=== PATIENT | female | born 1970 | race American Indian/Alaskan Native ===

== ENCOUNTER 2016-08-16 21:58 | Emergency (ER) | payer OTHER ==
[2016-08-17 03:32] LABS: Bilirubin,Urine NEG (Negative); Blood,Urine NEG (Negative); Ketones,Urine NEG (Negative); Leukocyte Esterase,Urine NEG (Negative); Mucus,Urine FEW /HPF; Nitrite,Urine NEG (Negative); Protein,Urine <15 mg/dL mg/dL (Negative); Urobilinogen,Urine < 2.0 mg/dL (<2.0)
[2016-08-17 03:36] LABS: WBC,Urine < 1.0 /HPF (0.0-6.0)
[2016-08-17] MEDS ORDERED: NORCO 5/325 PO ONE (03:58)
--- NOTE | 2016-08-17 04:46 | XRay Report ---
FINAL REPORT PROCEDURE: XR SPINE LUMBOSACRAL 2-3V TECHNIQUE: Lumbar spine radiographs, including AP, lateral, and lumbosacral spot views. CPT 07362 HISTORY: lower back pain COMPARISON: No prior studies are available for comparison. FINDINGS: Alignment: There is grade 1 anterior spondylolisthesis of L4 over L5.. Vertebral body heights/Disk spaces: There loss of disc height at L5-S1.. Fracture(s): None. Facets: There is bilateral facet hypertrophy at L4-5 and L5-S1.. Bone mineralization: Normal. IMPRESSION: There are no fractures.. There is grade 1 anterior spondylolisthesis of L4 over L5.. Loss of disc height at L5-S1.. There is bilateral facet hypertrophy at L4-5 and L5-S1..
--- NOTE | 2016-08-17 05:22 | Emergency Department Report ---
ED Back Pain/Injury HPI - General Chief Complaint: Back Pain/Injury Stated Complaint: PAIN IN LOWER BACK AND LEGS Time Seen by Provider: 08/17/16 02:45 Source: patient Limitations: Physical Limitation - History of Present Illness Initial Comments: 45-year-old female past medical history arthritis asthma migraines hypothyroidism sciatica herniated disks, morbid obesity weighing in at 400 pounds presents with complaint of acute on chronic lower back pain, pain radiates down left leg. Patient states this is consistent with her previous episodes of sciatica. Patient typically ambulates with a walker or cane, patient is ambulatory in the ED on my clinical exam with a walker and cane. Denies bladder or bowel incontinence denies any saddle paresthesias primarily complaining of lower back pain radiating down left leg. She has not followed up with primary care doctor or orthopedic doctor that she does not currently have insurance. Denies any direct trauma to her lower back or recent falls. Denies any fevers chills no chest pain no nausea no vomiting no abdominal pain. He eats that pain is intermittent colicky slightly worse with standing for long parents time and that she cannot lie in a comfortable position. This episode has been ongoing for 2 days. Denies any dysuria or increased urinary frequency denies any fecal incontinence. Patient is awake alert and oriented 3 , states she is assisted by her daughter at home. MD Complaint: back pain Onset/Timin -: days(s) Similar Symptoms Previously: Yes Place: home Radiation: buttocks, left leg Severity: moderate Severity scale (0 -10): 7 Quality: sharp, aching Consistency: intermittent Improves With: immobilization, medication Worsens With: movement, sitting upright, walking Context: while lifting, turning/twisting, bending Associated Symptoms: denies other symptoms - Related Data Previous Rx's Medication Instructions Recorded Last Taken Type HYDROcodone/APAP 5-325 [[place] 1 each PO Q6HR PRN #12 tablet 08/17/16 Unknown Rx 5/325] Allergies Allergy/AdvReac Type Severity Reaction Status Date / Time aspirin Allergy Anaphylaxis Verified 08/16/16 23:29 ibuprofen Allergy Anaphylaxis Verified 08/16/16 23:30 Penicillins Allergy Anaphylaxis Verified 08/16/16 23:29 shellfish derived Allergy Anaphylaxis Verified 08/16/16 23:31 Sulfa (Sulfonamide Allergy Unknown Verified 08/16/16 23:30 Antibiotics) tuberculin,PPD,multi-puncture Allergy Anaphylaxis Verified 08/16/16 23:32 ED Review of Systems ROS: Stated complaint: PAIN IN LOWER BACK AND LEGS Other details as noted in HPI ED Past Medical Hx - Past Medical History Previous Medical History?: Yes Hx Arthritis: Yes (osteoathritis) Hx Headaches / Migraines: Yes Hx Asthma: Yes (allergy induced) Additional medical history: osteoarthritis both knees, bone spurs, uses a cane, allergy induced asthma, hypothyroidism, migraines, sciatic nerve, herniated disc in spine - Social History Smoking Status: Unknown if ever smoked - Medications Home Medications: Home Medications Medication Instructions Recorded Confirmed Last Taken Type HYDROcodone/APAP 5-325 [[place] 1 each PO Q6HR PRN #12 tablet 08/17/16 Unknown Rx 5/325] ED Physical Exam - General Limitations: Physical Limitation General appearance: alert, in no apparent distress - Head Head exam: Present: atraumatic, normocephalic - Eye Eye exam: Present: normal appearance, PERRL, EOMI - ENT ENT exam: Present: mucous membranes moist - Neck Neck exam: Present: normal inspection - Respiratory Respiratory exam: Present: normal lung sounds bilaterally. Absent: respiratory distress - Cardiovascular Cardiovascular Exam: Present: regular rate, normal rhythm. Absent: systolic murmur, diastolic murmur, rubs, gallop - GI/Abdominal GI/Abdominal exam: Present: soft, normal bowel sounds, other (morbidly obese abdomen) - Extremities Exam Extremities exam: Present: normal inspection, full ROM - Back Exam Back exam: Present: normal inspection - Expanded Back Exam Expanded Back exam: Positive Straight Leg Raise: Left (30 degrees) - Neurological Exam Neurological exam: Present: alert, oriented X3, CN II-XII intact, abnormal gait (slightly antalgic gait) - Psychiatric Psychiatric exam: Present: normal affect, normal mood - Skin Skin exam: Present: warm, dry, intact, normal color. Absent: rash ED Course Vital Signs 08/16/16 23:36 Temperature 98.1 F Pulse Rate 110 H Respiratory 18 Rate Blood Pressure 163/89 O2 Sat by Pulse 100 Oximetry ED Medical Decision Making - Medical Decision Making A/P: Sciatica, acute on chronic lower back pain 1-patient has no clinical signs of cord compression denies any saddle paresthesias is able to ambulate independently without assistance other than a cane, no paralysis, pattern of pain consistent with sciatica 2-x-ray shows signs consistent with spondylolisthesis 3-I will refer patient to primary care orthopedics for appropriate follow-ups for management of chronic lower back pain 4-patient has multiple medical allergies to NSAIDs will provide short course of [place] for pain relief 5- educated patient on signs and symptoms of cord compression advised her to return to the ED if she experiences any paralysis and inability to ambulate, saddle paresthesias, bladder or bowel incontinence. pt expressed understanding of my instructions expressed understanding. Critical care attestation.: If time is entered above; I have spent that time in minutes in the direct care of this critically ill patient, excluding procedure time. ED Disposition Clinical Impression: Sciatica of left side Chronic lower back pain Qualifiers: Back pain laterality: left Sciatica presence: with sciatica Sciatica laterality : sciatica of left side Qualified Code(s): M54.42 - Lumbago with sciatica, left side; G89.29 - Other chronic pain Disposition: DISCHARGED TO HOME OR SELFCARE Is pt being admited?: No Does the pt Need Aspirin: No Condition: Stable Instructions: Sciatica (ED), Lumbar Disc Herniation (ED), Lumbar Radiculopathy (ED) Prescriptions: HYDROcodone/APAP 5-325 [[place] 5/325] 1 each PO Q6HR PRN #12 tablet PRN Reason: Pain Referrals: [facility] [Provider Group] - 3-5 Days [facility] [Outside] - 3-5 Days NANNETTE COOMBS MD [Staff Physician] - 3-5 Days BREANNE DICKEY MD [Staff Physician] - 3-5 Days [facility] [Provider Group] - 3-5 Days Time of Disposition: 05:36
[2016-08-17] MEDS ORDERED: ZOFRAN ODT PO ONE (05:47)
[2016-08-17 06:13] VITALS: BP 155/87
== END 2016-08-17 06:10 | disposition home or self-care (01) ==
LOC: EDSEX → ED 21:58
DX: M54.42 Lumbago with sciatica, left side (principal); G89.29 Other chronic pain; M19.90 Unspecified osteoarthritis, unspecified site; G43.909 Migraine, unspecified, not intractable, without status migrainosus; J45.909 Unspecified asthma, uncomplicated; E03.9 Hypothyroidism, unspecified; Z88.0 Allergy status to penicillin; Z88.2 Allergy status to sulfonamides; Z88.6 Allergy status to analgesic agent; Z91.013 Allergy to seafood
CPT/HCPCS: 72100; 81001; 81025; 99283; Q0162

== ENCOUNTER 2016-08-23 20:36 | Emergency (ER) | payer OTHER ==
[2016-08-23 22:08] LABS: Basophils % (Auto) 1.1 % (0.0-1.8); Eosinophils % (Auto) 3.4 % (0.0-4.3); Hematocrit 30.3 % (30.3-42.9); Hemoglobin 9.5 gm/dl (10.1-14.3); Mean Corpuscular HGB Conc 31 % (30-34); Platelet Count 354 K/mm3 (140-440); Red Blood Count 4.42 M/mm3 (3.65-5.03); Red Cell Distribution Width 19.5 % (13.2-15.2); White Blood Count 6.9 K/mm3 (4.5-11.0)
[2016-08-23 22:09] LABS: Mean Corpuscular Hemoglobin 22 pg (28-32); Mean Corpuscular Volume 69 fl (79-97)
[2016-08-23 22:17] LABS: Anion Gap 17 mmol/L; BUN/Creatinine Ratio 14.44; Blood Urea Nitrogen 13 mg/dL (7-17); Calcium 8.9 mg/dL (8.4-10.2); Carbon Dioxide 24 mmol/L (22-30); Chloride 100.1 mmol/L (98-107); Glucose 92 mg/dL (65-100); Potassium 3.8 mmol/L (3.6-5.0); Sodium 137 mmol/L (137-145)
[2016-08-23] MEDS ORDERED: KETALAR ONE (22:17)
[2016-08-24] MEDS ORDERED: ZOFRAN IV ONE (00:17)
[2016-08-24] MEDS ORDERED: MORPHINE IV ONE (00:17)
[2016-08-24 00:22] LABS: Bacteria,Urine 2+ /HPF (Negative); Bilirubin,Urine NEG (Negative); Blood,Urine NEG (Negative); Ketones,Urine NEG (Negative); Leukocyte Esterase,Urine NEG (Negative); Mucus,Urine FEW /HPF; Nitrite,Urine NEG (Negative); Protein,Urine <15 mg/dL mg/dL (Negative); Urobilinogen,Urine < 2.0 mg/dL (<2.0)
--- NOTE | 2016-08-24 00:24 | Emergency Department Report ---
HPI - General Chief Complaint: Neuro Symptoms/Deficit Time Seen by Provider: 08/24/16 00:05 - HPI HPI: Room 3 The patient is a 45-year-old female presenting with a chief complaint of left facial pain. The patient states this morning at approximately 11:00 she noticed numbness to her left face and the swelling behind her left ear. Patient states the not on her left ear is very tender to palpation. Patient states the pain behind her left anterior leg to a headache. Is question as to whether the patient's speech is normal secondary to the pain. Patient denies any extremity paresthesias. The patient states she was coming to the hospital however she accompanied a family member who came to the hospital so she decided to be seen. The patient currently gives her pain a score of 7/10 Location: Headache, left posterior auricular region Duration: Constant since 11:00 Quality: Pain Severity:7/10 Modifying factors: [see above] Context: [see above] Mode of transportation: [not driving] ED Past Medical Hx - Past Medical History Hx Arthritis: Yes (osteoathritis) Hx Headaches / Migraines: Yes Hx Psychiatric Treatment: Yes (depression/anxiety) Hx Asthma: Yes (allergy induced) Additional medical history: osteoarthritis both knees, bone spurs, uses a cane, allergy induced asthma, hypothyroidism, migraines, sciatic nerve, herniated disc in spine - Surgical History Additional Surgical History: plant right foot,, tubaligation - Family History Family history: no significant - Social History Smoking Status: Former Smoker (none x 2012) Substance Use Type: Alcohol - Medications Home Medications: Home Medications Medication Instructions Recorded Confirmed Last Taken Type HYDROcodone/APAP 5-325 [[place] 1 each PO Q6HR PRN #12 tablet 08/17/16 08/23/16 Unknown Rx 5/325] HYDROcodone/APAP 5-325 [[place] 1 - 2 each PO Q6HR PRN #12 tablet 08/24/16 Unknown Rx 5/325] Prednisone [predniSONE 10 mg 10 mg PO .TAPER #1 tab.ds.pk 08/24/16 Unknown Rx (6-Day Pack, 21 Tabs)] ED Review of Systems ROS: Stated complaint: LT SIDE FACIAL SWELLING Other details as noted in HPI Comment: All other systems reviewed and negative Constitutional: denies: chills, fever Eyes: denies: eye pain, eye discharge, vision change ENT: throat pain Respiratory: denies: cough, shortness of breath, wheezing Cardiovascular: denies: chest pain, palpitations Endocrine: no symptoms reported Gastrointestinal: denies: abdominal pain, nausea, diarrhea Genitourinary: denies: urgency, dysuria, discharge Musculoskeletal: denies: back pain, joint swelling, arthralgia Skin: denies: rash, lesions Neurological: headache, paresthesias Psychiatric: denies: anxiety, depression Hematological/Lymphatic: denies: easy bleeding, easy bruising Physical Exam - Physical Exam Vital Signs: Vital Signs 08/23/16 08/23/16 20:50 23:49 Temperature 98.1 F Pulse Rate 96 H 74 Respiratory 18 16 Rate Blood Pressure 161/88 Blood Pressure 123/71 [Left] O2 Sat by Pulse 100 94 Oximetry Physical Exam: GENERAL: The patient is well-developed well-nourished female lying on stretcher appearing to be in mild discomfort. [] HEENT: Normocephalic. Atraumatic. Extraocular motions are intact. Patient has moist mucous membranes. Oropharynx is clear. There is an approximately 1 cm tender movable nodule in the posterior regular region consistent with a lymph node. NECK: Supple. No meningitic signs are noted. Trachea midline CHEST/LUNGS: Clear to auscultation. There is no respiratory distress noted. HEART/CARDIOVASCULAR: Regular. There is no tachycardia. There is no gallop rub or murmur. ABDOMEN: Abdomen is soft, nontender. Patient has normal bowel sounds. There is no abdominal distention. SKIN: There is no rash. There is no edema. There is no diaphoresis. NEURO: The patient is awake, alert, and oriented. The patient is cooperative. The patient has no focal neurologic deficits. The patient has normal speech. Renal nerves II through XII grossly intact, normal sensation in V1, V2, V3 bilaterally. Normal sensation in bilateral upper extremities. There is no pronator drift. There is forehead sparing MUSCULOSKELETAL: There is no evidence of acute injury. ED Course Vital Signs 08/23/16 08/23/16 20:50 23:49 Temperature 98.1 F Pulse Rate 96 H 74 Respiratory 18 16 Rate Blood Pressure 161/88 Blood Pressure 123/71 [Left] O2 Sat by Pulse 100 94 Oximetry ED Medical Decision Making - Lab Data Result diagrams: 08/23/16 21:46 08/23/16 21:46 Laboratory Tests 08/23/16 08/23/16 08/23/16 21:46 21:46 23:31 WBC 6.9 RBC 4.42 Hgb 9.5 L Hct 30.3 MCV 69 L MCH 22 L MCHC 31 RDW 19.5 H Plt Count 354 Lymph % (Auto) 47.3 H Schleicher % (Auto) 5.8 Eos % (Auto) 3.4 Baso % (Auto) 1.1 Lymph # 3.3 Schleicher # 0.4 Eos # 0.2 Baso # 0.1 Seg Neutrophils % 42.4 Seg Neutrophils # 2.9 Sodium 137 Potassium 3.8 Chloride 100.1 Carbon Dioxide 24 Anion Gap 17 BUN 13 Creatinine 0.9 Estimated GFR > 60 BUN/Creatinine Ratio 14.44 Glucose 92 POC Glucose 87 Calcium 8.9 Urine Bilirubin Urine RBC (Auto) U Epithel Cells (Auto) 08/23/16 23:48 WBC RBC Hgb Hct MCV MCH MCHC RDW Plt Count Lymph % (Auto) Schleicher % (Auto) Eos % (Auto) Baso % (Auto) Lymph # Schleicher # Eos # Baso # Seg Neutrophils % Seg Neutrophils # Sodium Potassium Chloride Carbon Dioxide Anion Gap BUN Creatinine Estimated GFR BUN/Creatinine Ratio Glucose POC Glucose Calcium Urine Bilirubin Neg Urine RBC (Auto) 4.0 U Epithel Cells (Auto) 20.0 H - Radiology Data Radiology results: report reviewed (CT neck, CT head), image reviewed (CT head, CT neck) CT head (read by radiologist)-negative CT scan of the head. No acute intracranial process CT neck (read by radiologist)-there is a 9 x 7 x 8 mm soft tissue density behind the left ear which may correspond clinical abnormality. This could be a nonenlarged lymph node versus other mass. - Differential Diagnosis TMJ syndrome, mastoiditis, lymphadenopathy, ICH Critical care attestation.: If time is entered above; I have spent that time in minutes in the direct care of this critically ill patient, excluding procedure time. ED Disposition Clinical Impression: Mass of left side of neck Disposition: DISCHARGED TO HOME OR SELFCARE Is pt being admited?: No Does the pt Need Aspirin: No Condition: Stable Instructions: Lymphadenopathy (ED), Superficial Mass Needle Biopsy (ED) Additional Instructions: Return to the emergency department immediately should you develop worsening symptoms, fever, inability to tolerate food or liquid or any other concerns. Prescriptions: HYDROcodone/APAP 5-325 [[place] 5/325] 1 - 2 each PO Q6HR PRN #12 tablet PRN Reason: Pain Prednisone [predniSONE 10 mg (6-Day Pack, 21 Tabs)] 10 mg PO .TAPER #1 tab.ds.pk Referrals: PRIMARY CARE, [Primary Care Provider] - 3-5 Days [facility] [Outside] - 3-5 Days MI LYN MD [Staff Physician] - 3-5 Days (Dr. Lyn is an ear nose and throat doctor (hand bulldozer). Please follow up with her for further evaluation of your neck mass) Time of Disposition: 04:39
[2016-08-24] MEDS ORDERED: BENADRYL IV ONE (00:26)
[2016-08-24] MEDS ORDERED: NACL ONE (02:37)
--- NOTE | 2016-08-24 03:22 | Cat Scan Report ---
FINAL REPORT EXAM: CT HEAD/BRAIN WO CON HISTORY: headache, difficulty speaking TECHNIQUE: Standard unenhanced CT of the head at 5.0 millimeter axial increments. PRIORS: None. FINDINGS: The ventricular system is normal in size and configuration. There is no evidence for parenchymal volume loss. There is no evidence for mass lesion, mass effect, midline shift, acute intracranial hemorrhage, or acute ischemia/ infarction. No evidence for acute skull fracture is seen. No abnormality in the overlying scalp soft tissues is seen. Visualized paranasal sinuses are clear. IMPRESSION: Negative CT of the head. No acute intracranial process noted.
--- NOTE | 2016-08-24 04:30 | Cat Scan Report ---
FINAL REPORT EXAM: CT NECK W CON HISTORY: left posterior auricular swelling and pain TECHNIQUE: CT of the neck performed. 100 cc Omnipaque 350 IV was administered. Axial images and coronal and sagittal reformatted images were obtained. PRIORS: None. FINDINGS: Next soft tissue planes are preserved. No abnormal fluid collections are seen. There is a soft tissue density behind the left ear which measures 9 x 7 x 8 mm. This is nonspecific. It may be a small mass or may may be just a nonenlarged lymph node. There are sub cm nonspecific soft tissue densities in the parotid glands, most likely representing lymph nodes. Parotid glands are otherwise unremarkable. Submandibular glands have a normal appearance. Thyroid gland is incompletely visualized but appears nonenlarged. Visualized sinuses are clear. IMPRESSION: There is a 9 x 7 x 8 mm soft tissue density behind the left ear which may correspond to the clinical abnormality. This could be a nonenlarged lymph node versus other mass.
[2016-08-24 05:04] VITALS: BP 101/66
== END 2016-08-24 05:04 | disposition home or self-care (01) ==
LOC: ED 20:36
DX: R22.1 Localized swelling, mass and lump, neck (principal); M19.90 Unspecified osteoarthritis, unspecified site; G43.909 Migraine, unspecified, not intractable, without status migrainosus; F41.9 Anxiety disorder, unspecified; F32.9 Major depressive disorder, single episode, unspecified; J45.909 Unspecified asthma, uncomplicated; E03.9 Hypothyroidism, unspecified; Z87.891 Personal history of nicotine dependence
CPT/HCPCS: 36415; 70450; 70491; 80048; 81001; 81025; 82962; 85025; 96374; 96375; 99284; J1200; J2270; J2405; Q9967

== ENCOUNTER 2016-09-01 09:41 | Emergency (ER) | payer SELFPAY ==
[2016-09-01 10:26] VITALS: BP 149/86
[2016-09-01] MEDS ORDERED: NORCO 5/325 PO ONE (13:38)
--- NOTE | 2016-09-01 13:38 | Emergency Department Report ---
HPI - General Chief Complaint: Neck Pain/Injury Time Seen by Provider: 09/01/16 12:54 - HPI HPI: This is a 45-year-old female presents to ED complaining of left-sided neck pain has been going on for about a month. Patient states she was seen last week with given some prednisone and pain medication and follow-up with primary care physician. Patient states she does not have insurance and was not able to follow up. She states that took the prednisone was immediately better after she was done taking the medication the pain started yesterday. She denies fevers/chills/nausea/vomiting/abdominal pain/chest pains or shortness of breath/headache/blurred vision/trauma or injury. ED Past Medical Hx - Past Medical History Previous Medical History?: Yes Hx Arthritis: Yes (osteoathritis) Hx Headaches / Migraines: Yes Hx Psychiatric Treatment: Yes (depression/anxiety) Hx Asthma: Yes (allergy induced) Additional medical history: osteoarthritis both knees, bone spurs, uses a cane, allergy induced asthma, hypothyroidism, migraines, sciatic nerve, herniated disc in spine - Surgical History Past Surgical History?: Yes Additional Surgical History: plant right foot,, tubaligation - Social History Smoking Status: Former Smoker Substance Use Type: Alcohol, Prescribed - Medications Home Medications: Home Medications Medication Instructions Recorded Confirmed Last Taken Type HYDROcodone/APAP 5-325 [[place] 1 - 2 each PO Q6HR PRN #12 tablet 08/24/16 Unknown Rx 5/325] Prednisone [predniSONE 10 mg 10 mg PO .TAPER #1 tab.ds.pk 08/24/16 Unknown Rx (6-Day Pack, 21 Tabs)] Azithromycin [Zithromax] 250 mg PO DAILY #6 tablet 09/01/16 Unknown Rx HYDROcodone/APAP 5-325 [[place] 1 each PO Q6HR PRN #12 tablet 09/01/16 Unknown Rx 5-325 mg TAB] ED Review of Systems ROS: Stated complaint: PAIN IN NECK/MIGRANE/LUMP IN NECK/SWOLLEN Other details as noted in HPI Constitutional: denies: chills, fever Eyes: denies: eye pain, eye discharge, vision change ENT: denies: ear pain, throat pain Respiratory: denies: cough, shortness of breath, wheezing Cardiovascular: denies: chest pain, palpitations Endocrine: no symptoms reported Gastrointestinal: denies: abdominal pain, nausea, diarrhea Genitourinary: denies: urgency, dysuria, discharge Musculoskeletal: denies: back pain, joint swelling, arthralgia Skin: denies: rash, lesions, pruritus Neurological: denies: headache, weakness, numbness, paresthesias, confusion, abnormal gait Psychiatric: denies: anxiety, depression Hematological/Lymphatic: denies: easy bleeding, easy bruising Physical Exam - Physical Exam Vital Signs: Vital Signs 09/01/16 10:23 Temperature 98.3 F Pulse Rate 94 H Respiratory 20 Rate Blood Pressure 149/86 O2 Sat by Pulse 100 Oximetry Physical Exam: GENERAL: Alert and oriented x3, appears to be in mild apparent distress, Normal Gait, atraumatic HEAD: Head is normocephalic and a-traumatic. EYES: Extra ocular muscles are intact. Pupils are equal, round, and reactive to light and accommodation. EARS: symetrical, atraumatic, non tender, ear canal clear and moderate cerumen, tympanic membrance non inflamed. gross auditory nml bilaterally. 1 cm tender movable nodule in the posterior auricular region consistent with a post auricular enlarged lymph node. NOSE: Nose symetrical, Nontender,Nares appeared normal. MOUTH:Mouth is well hydrated and without lesions. Tonsils nonerythematous or swollen, Uvula midline, Tongue not elevated. Mucous membranes are moist. Posterior pharynx clear, no exudate or lesions. Patent airways. NECK: Supple. Non edematous, No carotid bruits. No lymphadenopathy or thyromegaly. No C-spine tenderness LUNGS: Symetrical with respiration, No wheezing, no rales or crackles, CTAB. HEART: S1, S2 present, regular rate and rhythm without murmur, no rubs, no gallops. EXTREMITIES/MUSCULOSKELETAL: No cyanosis, clubbing, rash, lesions or edema. Full ROM bilaterally. NEUROLOGIC: No focal Neural Deficit, Cranial nerves II through XII are grossly intact. No loss of sensation, No facial droop, SKIN: Warm and dry, No lesions, No ulceration or induration present. ED Course Vital Signs 09/01/16 10:23 Temperature 98.3 F Pulse Rate 94 H Respiratory 20 Rate Blood Pressure 149/86 O2 Sat by Pulse 100 Oximetry ED Medical Decision Making - Medical Decision Making 45-year-old female presents with postauricular lymphadenopathy/mass ED course: Patient received 2 tablets of [place]. discussed the patient need to follow up as she was told during her last visit. Patient received the CT scan during her last visit that shows possible lymph node enlargement or mass. Patient states she feels much better after receiving 2 [place] tablets Patient's symptoms are unchanged and is not worsening since his last visit Therefore no CT scan is needed at this visit Vital signs are normal patient is in no acute or respiratory distress. Discussed the patient follow-up is needed. - Differential Diagnosis 1. Lymphadenopathy 2. Left neck muscle strain 3. Mastoiditis 4. TMJ Dis Critical care attestation.: If time is entered above; I have spent that time in minutes in the direct care of this critically ill patient, excluding procedure time. ED Disposition Clinical Impression: Neck pain on left side, Lymphadenopathy Disposition: DISCHARGED TO HOME OR SELFCARE Is pt being admited?: No Does the pt Need Aspirin: No Condition: Stable Instructions: Lymphadenopathy (ED), Adenitis (ED) Additional Instructions: Follow-up with primary care physician as referred. Take medication as prescribed. If any worsening symptoms return to nearest ED. It is very important for you to follow up with the primary care as referred. Applied some heat 3 times a day to the left neck affected area. Prescriptions: Azithromycin [Zithromax] 250 mg PO DAILY #6 tablet HYDROcodone/APAP 5-325 [[place] 5-325 mg TAB] 1 each PO Q6HR PRN #12 tablet PRN Reason: Pain Referrals: PRIMARY CARE, [Primary Care Provider] - 3-5 Days [facility] [place] [Outside] - 3-5 Days [facility] [Outside] - 3-5 Days [facility] [Outside] - 3-5 Days Forms: Work/School Release Form(ED) Time of Disposition: 14:00
== END 2016-09-01 14:15 | disposition home or self-care (01) ==
LOC: ED 09:41
DX: R59.0 Localized enlarged lymph nodes (principal); M54.2 Cervicalgia; M19.90 Unspecified osteoarthritis, unspecified site; G43.909 Migraine, unspecified, not intractable, without status migrainosus; F32.9 Major depressive disorder, single episode, unspecified; F41.9 Anxiety disorder, unspecified; J45.909 Unspecified asthma, uncomplicated; E03.9 Hypothyroidism, unspecified; Z87.891 Personal history of nicotine dependence; Z98.51 Tubal ligation status
CPT/HCPCS: 99282

== ENCOUNTER 2016-12-23 13:05 | Emergency (ER) | payer SELFPAY ==
[2016-12-23] MEDS ORDERED: TORADOL IM ONE (20:02)
[2016-12-23 20:14] VITALS: BP 138/89
--- NOTE | 2016-12-24 01:36 | Emergency Department Report ---
Entered by ANDRZEJ GIVENS, acting as scribe for ANIKA VALENZUELA NP. ED Back Pain/Injury HPI - General Chief Complaint: Extremity Injury, Lower Stated Complaint: BILAT LEG PAIN/SWOLLEN Time Seen by Provider: 12/23/16 19:23 Source: patient Limitations: No Limitations - History of Present Illness Initial Comments: This is a 46 y/o female, nontoxic, well nourished in appearance, no acute signs of distress with a PMHx of osteoarthritis, asthma, migraines, herniated disc of lumbar, psychiatric treatment, and hypothyroidism presents with an acute episode of chronic low back pain. Rates pain a 9/10 in severity, which she describes as aching/burning in quality. Aggravated with movement, and alleviated with immobilization and medication. Reports associated radiation to bilateral legs, but she denies any recent injuries, falls, heavy lifting, dysuria, fever, stiff neck, bladder or bowel instability, chills, chest pain, SOB, GARNICA or dizziness, numbness, and tingling. Notes she was seen in this ED multiple time for similar complaints, which the last time she was diagnosed with sciatica, but she denies following-up with a PCP. Patient stated has very similar symptoms as previous. Notes she received lumbar back X-rays that showed her L4 is overlapping her L5. Patient states she is currently here for pain management. Denies PMHx of diabetes mellitus. NKDA. HINTON Complaint: back pain -: Gradual, month(s) Similar Symptoms Previously: Yes Place: home Radiation: left leg, right leg Severity: severe Severity scale (0 -10): 9 Quality: burning, aching Consistency: constant Improves With: immobilization, medication Worsens With: movement Context: other (Hx of chronic back pain and sciatica) Associated Symptoms: denies other symptoms. denies: confusion, weakness, chest pain, numbness, difficulty walking, cough, difficulty urinating, diaphoresis, incontinence, fever/chills, constipation, headaches, abdominal pain, loss of appetite, malaise, nausea/vomiting, rash, seizure, shortness of breath, syncope - Related Data Previous Rx's Medication Instructions Recorded Last Taken Type HYDROcodone/APAP 5-325 [[place] 1 - 2 each PO Q6HR PRN #12 tablet 08/24/16 Unknown Rx 5/325] Prednisone [predniSONE 10 mg 10 mg PO .TAPER #1 tab.ds.pk 08/24/16 Unknown Rx (6-Day Pack, 21 Tabs)] Azithromycin [Zithromax] 250 mg PO DAILY #6 tablet 09/01/16 Unknown Rx HYDROcodone/APAP 5-325 [[place] 1 each PO Q6HR PRN #12 tablet 09/01/16 Unknown Rx 5-325 mg TAB] predniSONE [Deltasone] 20 mg PO BID #10 tab 12/23/16 Unknown Rx traMADol [Ultram] 50 mg PO Q4HR PRN #15 tablet 12/23/16 Unknown Rx Allergies Allergy/AdvReac Type Severity Reaction Status Date / Time aspirin Allergy Anaphylaxis Verified 08/16/16 23:29 ibuprofen Allergy Anaphylaxis Verified 08/16/16 23:30 Penicillins Allergy Anaphylaxis Verified 08/16/16 23:29 shellfish derived Allergy Anaphylaxis Verified 08/16/16 23:31 Sulfa (Sulfonamide Allergy Unknown Verified 08/16/16 23:30 Antibiotics) tuberculin,PPD,multi-puncture Allergy Anaphylaxis Verified 08/16/16 23:32 ED Review of Systems Comment: All other systems reviewed and negative Constitutional: denies: chills, fever Eyes: denies: eye pain, eye discharge, vision change ENT: denies: ear pain, throat pain Respiratory: denies: cough, orthopnea, shortness of breath, SOB with exertion, SOB at rest, stridor, wheezing Cardiovascular: denies: chest pain, palpitations, dyspnea on exertion, orthopnea , edema, syncope, paroxysmal nocturnal dyspnea Endocrine: no symptoms reported Gastrointestinal: denies: abdominal pain, nausea, vomiting, diarrhea Genitourinary: denies: urgency, dysuria, discharge Musculoskeletal: back pain (low back), joint swelling (bilateral feet). denies : arthralgia, myalgia Skin: denies: rash, lesions Neurological: denies: headache, weakness, numbness, paresthesias Psychiatric: denies: anxiety, depression Hematological/Lymphatic: denies: easy bleeding, easy bruising ED Past Medical Hx - Past Medical History Previous Medical History?: Yes Hx Arthritis: Yes (osteoathritis) Hx Headaches / Migraines: Yes Hx Psychiatric Treatment: Yes (depression/anxiety) Hx Asthma: Yes (allergy induced) Additional medical history: osteoarthritis both knees, bone spurs, uses a cane, allergy induced asthma, hypothyroidism, migraines, sciatic nerve, herniated disc in spine - Surgical History Past Surgical History?: Yes Additional Surgical History: plant right foot,, tubaligation - Family History Family history: no significant - Social History Smoking Status: Never Smoker Substance Use Type: Alcohol - Medications Home Medications: Home Medications Medication Instructions Recorded Confirmed Last Taken Type HYDROcodone/APAP 5-325 [[place] 1 - 2 each PO Q6HR PRN #12 tablet 08/24/16 Unknown Rx 5/325] Prednisone [predniSONE 10 mg 10 mg PO .TAPER #1 tab.ds.pk 08/24/16 Unknown Rx (6-Day Pack, 21 Tabs)] Azithromycin [Zithromax] 250 mg PO DAILY #6 tablet 09/01/16 Unknown Rx HYDROcodone/APAP 5-325 [[place] 1 each PO Q6HR PRN #12 tablet 09/01/16 Unknown Rx 5-325 mg TAB] predniSONE [Deltasone] 20 mg PO BID #10 tab 12/23/16 Unknown Rx traMADol [Ultram] 50 mg PO Q4HR PRN #15 tablet 12/23/16 Unknown Rx ED Physical Exam - General Limitations: No Limitations General appearance: alert, in no apparent distress - Head Head exam: Present: atraumatic, normocephalic - Eye Eye exam: Present: normal appearance, PERRL, EOMI. Absent: scleral icterus, conjunctival injection, nystagmus, periorbital swelling, periorbital tenderness Pupils: Present: normal accommodation - ENT ENT exam: Present: normal exam, normal orophraynx, mucous membranes moist, TM's normal bilaterally, normal external ear exam - Neck Neck exam: Present: normal inspection, full ROM. Absent: tenderness, meningismus, lymphadenopathy, thyromegaly - Respiratory Respiratory exam: Present: normal lung sounds bilaterally. Absent: respiratory distress, wheezes, rales, rhonchi, stridor, chest wall tenderness, accessory muscle use, decreased breath sounds - Cardiovascular Cardiovascular Exam: Present: regular rate, normal rhythm, normal heart sounds. Absent: bradycardia, tachycardia, irregular rhythm, systolic murmur, diastolic murmur, rubs, gallop - GI/Abdominal GI/Abdominal exam: Present: soft, normal bowel sounds. Absent: distended, tenderness, guarding, rebound, rigid, diminished bowel sounds - Rectal Rectal exam: Present: deferred - Extremities Exam Extremities exam: Present: normal inspection, full ROM, normal capillary refill. Absent: tenderness, pedal edema, joint swelling, calf tenderness - Expanded Lower Extremity Exam Left Hip exam: Present: normal inspection (bilaterally), full ROM, external rotation , internal rotation, pelvic stability. Absent: tenderness, swelling, abrasion, laceration, ecchymosis, deformity, crepidus, dislocation, erythema, shortening Upper Leg exam: Present: normal inspection (bilaterally), full ROM. Absent: tenderness, swelling, abrasion, laceration, ecchymosis, deformity, crepidus, dislocation, erythema Knee exam: Present: normal inspection (bilaterally), full ROM, full knee extension. Absent: tenderness, swelling, abrasion, laceration, ecchymosis, deformity, crepidus, dislocation, erythema, effusion, pain w/ pronation/ supination, posterior draw sign, pain/laxity with valgus, pain/laxity with varus Lower Leg exam: Present: normal inspection (bilaterally), full ROM. Absent: tenderness, swelling, abrasion, laceration, ecchymosis, deformity, crepidus, dislocation, erythema, palpable cord, Cesario's sign Ankle exam: Present: normal inspection (bilaterally), full ROM. Absent: tenderness, swelling, abrasion, laceration, ecchymosis, deformity, crepidus, dislocation, erythema, anterior draw sign Foot/Toe exam: Present: normal inspection (bilaterally), full ROM. Absent: tenderness, swelling, abrasion, laceration, ecchymosis, deformity, crepidus, dislocation, erythema, amputation, puncture wound, foreign body, calcaneal tenderness, tenderness at base of 5th metatarsal, nail avulsion, subungual hematoma Neuro vascular tendon exam: Present: no vascular compromise. Absent: pulse deficit, abnormal cap refill, motor deficit, sensory deficit, tendon deficit, extremity cold to touch, pallor, abnormal 2-point discrimination, decreased fine /light touch, foot drop, peroneal nerve deficit, significant pain with passive ROM of distal joint Gait: Positive: observed and normal - Back Exam Back exam: Present: full ROM, tenderness (lumbar paraspinal), paraspinal tenderness (lumbar). Absent: normal inspection, CVA tenderness (R), CVA tenderness (L), muscle spasm, vertebral tenderness, rash noted - Neurological Exam Neurological exam: Present: alert, oriented X3, CN II-XII intact, normal gait, reflexes normal. Absent: motor sensory deficit - Psychiatric Psychiatric exam: Present: normal affect, normal mood - Skin Skin exam: Present: warm, dry, intact. Absent: rash ED Course Vital Signs 12/23/16 13:16 Temperature 98.4 F Pulse Rate 106 H Respiratory 18 Rate Blood Pressure 149/86 O2 Sat by Pulse 98 Oximetry - Reevaluation(s) Reevaluation #1: 12/23/16 20:04 Patient is speaking in full sentences with no signs of distress noted. ED Medical Decision Making - Medical Decision Making 46-year-old female that presents with chronic low back pain with sciatica. Patient was seen on 08/16/2016 with a x-ray indicating they were anterior spondylosis of L4 over L5, loss of disc height at L5-S1, bilateral facet hypertrophy at L4-L5 and L5-S1. Patient stated she did not have a follow-up with orthopedic doctor or primary care doctor. Patient denies any bladder or bowel stability. Patient is stable. Patient is myself. Patient received Toradol 60 mg IM the ED for pain. Patient be discharged with Ultram and Flexeril. Patient stated she received Flexeril during acute episode of low back pain that helped her significantly. Patient denies numbness recently. Patient referred to a orthopedic and primary care doctor. At time time of discharge, the patient does not seem toxic or ill in appearance. No acute signs of distress noted. Patient agrees to discharge treatment plan of care. No further questions noted by the patient. ED Disposition Clinical Impression: Lumbar radiculopathy Low back pain Qualifiers: Chronicity: unspecified Back pain laterality: bilateral Sciatica presence: with sciatica Sciatica laterality: sciatica laterality unspecified Qualified Code(s): M54.40 - Lumbago with sciatica, unspecified side Disposition: - TO HOME OR SELFCARE Is pt being admited?: No Does the pt Need Aspirin: No Condition: Stable Instructions: Low Back Strain (ED), Sciatica (ED), Lumbar Radiculopathy (ED), Tramadol (By mouth), Cyclobenzaprine (By mouth) Additional Instructions: Follow-up with a primary care doctor/orthopedic doctor in 3-5 days or if symptoms worsen and continue return to emergency room as soon as possible. Take Ultram and Flexeril s needed for pain. Do not operate any machinery while taking Ultram or Flexeril due to sedation/drowsiness. Prescriptions: predniSONE [Deltasone] 20 mg PO BID #10 tab traMADol [Ultram] 50 mg PO Q4HR PRN #15 tablet PRN Reason: Pain Referrals: PRIMARY CARE,MD [Primary Care Provider] - 3-5 Days YANNA BRANDT MD [Staff Physician] - 3-5 Days BREANNE DICKEY MD [Staff Physician] - 3-5 Days [facility] [Outside] - 3-5 Days [facility] [Outside] - 3-5 Days This documentation as recorded by the CO[facility] delcid JASMINE,accurately reflects the service I personally performed and the decisions made by ,ANIKA VALENZUELA, PRODUCTION ANALYST.
== END 2016-12-23 20:40 | disposition home or self-care (01) ==
LOC: ED 13:05
DX: M54.16 Radiculopathy, lumbar region (principal); M19.90 Unspecified osteoarthritis, unspecified site; G43.909 Migraine, unspecified, not intractable, without status migrainosus; F32.9 Major depressive disorder, single episode, unspecified; F41.9 Anxiety disorder, unspecified; J45.909 Unspecified asthma, uncomplicated; E03.9 Hypothyroidism, unspecified; Z98.51 Tubal ligation status; Z88.6 Allergy status to analgesic agent; Z88.0 Allergy status to penicillin; Z88.2 Allergy status to sulfonamides; Z91.013 Allergy to seafood
CPT/HCPCS: 96372; 99282; J1885

== ENCOUNTER 2017-03-21 02:23 | Inpatient (IN) | payer MEDICAID ==
[2017-03-21 04:29] LABS: Basophils % (Auto) 0.8 % (0.0-1.8); Eosinophils % (Auto) 2.9 % (0.0-4.3); Hematocrit 40.3 % (30.3-42.9); Hemoglobin 13.3 gm/dl (10.1-14.3); Mean Corpuscular HGB Conc 33 % (30-34); Mean Corpuscular Hemoglobin 28 pg (28-32); Mean Corpuscular Volume 86 fl (79-97); Platelet Count 259 K/mm3 (140-440); Red Blood Count 4.71 M/mm3 (3.65-5.03); Red Cell Distribution Width 15.2 % (13.2-15.2); White Blood Count 3.6 K/mm3 (4.5-11.0)
[2017-03-21 04:45] LABS: Anion Gap 17 mmol/L; BUN/Creatinine Ratio 10; Blood Urea Nitrogen 7 mg/dL (7-17); Calcium 8.8 mg/dL (8.4-10.2); Carbon Dioxide 28 mmol/L (22-30); Chloride 98.5 mmol/L (98-107); Glucose 123 mg/dL (65-100); Potassium 4.2 mmol/L (3.6-5.0); Sodium 139 mmol/L (137-145)
[2017-03-21] MEDS ORDERED: ULTRAM PO ONE (08:47)
--- NOTE | 2017-03-21 09:06 | XRay Report ---
Single view chest: History: Shortness of breath. Findings: Normal cardiomediastinal silhouette. Trachea is midline. No consolidation, pneumothorax or pleural effusion. Impression: No acute cardiopulmonary findings.
[2017-03-21] MEDS ORDERED: ATROVENT IH ONE (12:16)
[2017-03-21] MEDS ORDERED: PROVENTIL IH ONE (12:16)
--- NOTE | 2017-03-21 12:20 | Emergency Department Report ---
HPI - General Chief Complaint: Chest Pain Time Seen by Provider: 03/21/17 12:12 - HPI HPI: This is a 46-year-old female presents to the emergency department with complaint of some wheezing, shortness of breath and some chest tightness to the left side that began last night. She denies any vomiting, diaphoresis, fever. She also has been having some chest congestion and a mixed dry and productive cough for the past 4-5 days. She is not taking anything for her symptoms by the presentation. She has a past medical history of osteoarthritis, depression , obesity, asthma, hypothyroidism. Her primary care doctor is Dr. Erich Montalvo at [facility] in [place]. No recent travel or sick contacts at home. Secondarily she complains of some type of lesion to the right lower lateral leg that she believes was caused by something that bit her. At one point she was able to squeeze it and discharge and pus from the site but is still slightly tender and red. She denies any tobacco or illicit drug use or abuse. ED Past Medical Hx - Past Medical History Previous Medical History?: Yes Hx Arthritis: Yes (osteoathritis) Hx Headaches / Migraines: Yes Hx Psychiatric Treatment: Yes (depression/anxiety) Hx Asthma: Yes (allergy induced) Additional medical history: osteoarthritis both knees, bone spurs, uses a cane, allergy induced asthma, hypothyroidism, migraines, sciatic nerve, herniated disc in spine - Surgical History Additional Surgical History: plant right foot,, tubaligation - Social History Smoking Status: Former Smoker - Medications Home Medications: Home Medications Medication Instructions Recorded Confirmed Last Taken Type HYDROcodone/APAP 5-325 [[place] 1 - 2 each PO Q6HR PRN #12 tablet 08/24/16 Unknown Rx 5/325] Prednisone [predniSONE 10 mg 10 mg PO .TAPER #1 tab.ds.pk 08/24/16 Unknown Rx (6-Day Pack, 21 Tabs)] Azithromycin [Zithromax] 250 mg PO DAILY #6 tablet 09/01/16 Unknown Rx HYDROcodone/APAP 5-325 [[place] 1 each PO Q6HR PRN #12 tablet 09/01/16 Unknown Rx 5-325 mg TAB] predniSONE [Deltasone] 20 mg PO BID #10 tab 12/23/16 Unknown Rx traMADol [Ultram] 50 mg PO Q4HR PRN #15 tablet 12/23/16 Unknown Rx ED Review of Systems ROS: Stated complaint: CP; SOB Other details as noted in HPI Comment: All other systems reviewed and negative Constitutional: denies: chills, fever Eyes: denies: eye pain, eye discharge, vision change ENT: denies: ear pain, throat pain Respiratory: shortness of breath, wheezing Cardiovascular: chest pain. denies: palpitations Gastrointestinal: nausea. denies: abdominal pain, vomiting Genitourinary: denies: urgency, dysuria, discharge Musculoskeletal: denies: back pain, joint swelling, arthralgia Skin: lesions. denies: pruritus Neurological: denies: headache, weakness, paresthesias Physical Exam - Physical Exam Vital Signs: Vital Signs 03/21/17 03/21/17 02:35 03:20 Temperature 98.1 F 98.1 F Pulse Rate 108 H 106 H Respiratory 18 18 Rate Blood Pressure 124/79 124/79 O2 Sat by Pulse 96 96 Oximetry Physical Exam: GENERAL: The patient is well-developed well-nourished. HENT: Normocephalic. Atraumatic. Patient has moist mucous membranes. EYES: Extraocular motions are intact. Pupils equal reactive to light bilaterally. NECK: Supple. Trachea is midline. CHEST/LUNGS: Moderate wheezing throughout the chest. There is some tachypnea but no cysts or masses. There is no respiratory distress noted. HEART/CARDIOVASCULAR: Regular. There is mild tachycardia. There is no gallop rub or murmur. ABDOMEN: Abdomen is soft, nontender. Patient has normal bowel sounds. There is no abdominal distention. Morbidly obese habitus. SKIN: Skin is warm and dry. NEURO: The patient is awake, alert, and oriented. The patient is cooperative. The patient has no focal neurologic deficits. The patient has normal speech. MUSCULOSKELETAL: There is no tenderness or deformity. There is no limitation range of motion. There is no evidence of acute injury. ED Course Vital Signs 03/21/17 03/21/17 02:35 03:20 Temperature 98.1 F 98.1 F Pulse Rate 108 H 106 H Respiratory 18 18 Rate Blood Pressure 124/79 124/79 O2 Sat by Pulse 96 96 Oximetry ED Medical Decision Making - Lab Data Result diagrams: 03/21/17 04:16 03/21/17 04:16 - EKG Data -: EKG Interpreted by Me EKG shows normal: sinus rhythm, axis (RAD), intervals, QRS complexes (RBBB), ST- T waves Rate: tachycardia (108 bpm) - EKG Data When compared to previous EKG there are: previous EKG unavailable Interpretation: other (Sinus tach, RBBB) - Radiology Data Radiology results: report reviewed, image reviewed interpreted by me: Chest x-ray does not show any acute process. There are no pleural effusions, obvious pneumonia and there is no pneumothorax. FINAL REPORT EXAM: NM LUNG SCAN PERF/VENT HISTORY: SOB, elevated dimer TECHNIQUE: Ventilation-perfusion scan The perfusion study was following intravenous administration 5 millicuries technetium 99 M MAA Ventilation study was performed with 15 millicuries of Xe 133 gas PRIORS: None. FINDINGS: On perfusion study there is a homogeneous distribution of the radiotracer bilaterally without evidence for perfusion defect. On ventilation study there is no evidence for air trapping. There is rapid washout of the radiotracer. IMPRESSION: Negative. No scintigraphic evidence for acute pulmonary embolus Transcribed By: SOFIA Dictated By: JOSE IBARRA MD Electronically Authenticated By: JOSE IBARRA MD Signed Date/Time: 03/21/17 1121 - Medical Decision Making The patient received steroids, breathing treatments and there is some improvement of her wheezing and bronchospasm but not enough. She still has tachycardia, tachypnea and audible wheezing. VQ is low probability for pulmonary embolism. She still has some chest discomfort as well but there has been negative troponins 3 and an EKG that does not show any ST elevation SC. She will be admitted to the hospital for further evaluation and treatment and has been accepted for admission by the hospitalist, Dr Basurto. - Differential Diagnosis Asthma, PE, COPD, SC, CHF Critical Care Time: No Critical care attestation.: If time is entered above; I have spent that time in minutes in the direct care of this critically ill patient, excluding procedure time. ED Disposition Clinical Impression: Bronchospasm Asthma exacerbation Qualifiers: Asthma severity: unspecified severity Asthma persistence: unspecified Qualified Code(s): J45.901 - Unspecified asthma with (acute) exacerbation Chest pain Qualifiers: Chest pain type: unspecified Qualified Code(s): R07.9 - Chest pain, unspecified Disposition: OP ADMIT IP TO THIS HOSP Is pt being admited?: Yes Condition: Stable Instructions: Chest Pain (ED) Referrals: PRIMARY CARE, [Primary Care Provider] - 3-5 Days Time of Disposition: 16:40
[2017-03-21] MEDS ORDERED: NACL ONE (12:59)
--- NOTE | 2017-03-21 15:24 | Nuclear Medicine Report ---
FINAL REPORT EXAM: NM LUNG SCAN PERF/VENT HISTORY: SOB, elevated dimer TECHNIQUE: Ventilation-perfusion scan The perfusion study was following intravenous administration 5 millicuries technetium 99 M MAA Ventilation study was performed with 15 millicuries of Xe 133 gas PRIORS: None. FINDINGS: On perfusion study there is a homogeneous distribution of the radiotracer bilaterally without evidence for perfusion defect. On ventilation study there is no evidence for air trapping. There is rapid washout of the radiotracer. IMPRESSION: Negative. No scintigraphic evidence for acute pulmonary embolus
--- NOTE | 2017-03-21 17:54 | History and Physical Report ---
History of Present Illness Chief complaint: sob, wheezing History of present illness: 46 year old woman with history of morbid obesity and Mild intermittent allergic asthma. She states that she only has two asthma attacks every year. She gets a short course of treatment and she is fine most of the year. She presents with two to three days of progressive shortness of breath, Dyspnea on exertion, And wheezing. she reports that since receiving oxygen and breathing treatments in the emergency room she feels much better. Past History Past Medical History: other (asthma, morbid obesity, hypothyroidism, OA, ) Past Surgical History: , Other (tubal ligation, Right foot surgery with metal plates in it. ) Social history: no significant social history Family history: other (asthma on both sides) Medications and Allergies Allergies Allergy/AdvReac Type Severity Reaction Status Date / Time aspirin Allergy Anaphylaxis Verified 08/16/16 23:29 ibuprofen Allergy Anaphylaxis Verified 08/16/16 23:30 Penicillins Allergy Anaphylaxis Verified 08/16/16 23:29 shellfish derived Allergy Anaphylaxis Verified 08/16/16 23:31 Sulfa (Sulfonamide Allergy Unknown Verified 08/16/16 23:30 Antibiotics) tuberculin,PPD,multi-puncture Allergy Anaphylaxis Verified 08/16/16 23:32 Home Medications Medication Instructions Recorded Confirmed Last Taken Type HYDROcodone/APAP 5-325 [[place] 1 - 2 each PO Q6HR PRN #12 tablet 08/24/16 Unknown Rx 5/325] Prednisone [predniSONE 10 mg 10 mg PO .TAPER #1 tab.ds.pk 08/24/16 Unknown Rx (6-Day Pack, 21 Tabs)] Azithromycin [Zithromax] 250 mg PO DAILY #6 tablet 09/01/16 Unknown Rx HYDROcodone/APAP 5-325 [[place] 1 each PO Q6HR PRN #12 tablet 09/01/16 Unknown Rx 5-325 mg TAB] predniSONE [Deltasone] 20 mg PO BID #10 tab 12/23/16 Unknown Rx traMADol [Ultram] 50 mg PO Q4HR PRN #15 tablet 12/23/16 Unknown Rx Review of Systems Constitutional: weakness Respiratory: cough, shortness of breath, dyspnea on exertion, wheezing Exam - Constitutional Vitals: Temp Pulse Resp BP Pulse Ox 98.1 F 106 H 20 124/79 96 03/21/17 03:20 03/21/17 13:30 03/21/17 13:30 03/21/17 03:20 03/21/17 03:20 General appearance: Present: no acute distress, well-nourished, obese - EENT Eyes: Present: PERRL ENT: hearing intact, clear oral mucosa - Neck Neck: Present: supple, normal ROM - Respiratory Respiratory effort: normal Respiratory: bilateral: diminished, wheezing - Cardiovascular Heart Sounds: Present: S1 & S2. Absent: rub, click - Extremities Extremities: pulses symmetrical, No edema Peripheral Pulses: within normal limits - Abdominal General gastrointestinal: Present: soft, non-tender, non-distended, normal bowel sounds Female genitourinary: Present: normal - Integumentary Integumentary: Present: clear, warm, dry - Musculoskeletal Musculoskeletal: gait normal, strength equal bilaterally - Psychiatric Psychiatric: appropriate mood/affect, intact judgment & insight - Neurologic Neurologic: CNII-XII intact, moves all extremities Results - Labs CBC & Chem 7: 03/21/17 04:16 03/22/17 05:35 Labs: Laboratory Last Values WBC 3.6 K/mm3 (4.5-11.0) L 03/21/17 04:16 RBC 4.71 M/mm3 (3.65-5.03) 03/21/17 04:16 Hgb 13.3 gm/dl (10.1-14.3) 03/21/17 04:16 Hct 40.3 % (30.3-42.9) 03/21/17 04:16 MCV 86 fl (79-97) 03/21/17 04:16 MCH 28 pg (28-32) 03/21/17 04:16 MCHC 33 % (30-34) 03/21/17 04:16 RDW 15.2 % (13.2-15.2) 03/21/17 04:16 Plt Count 259 K/mm3 (140-440) 03/21/17 04:16 Lymph % (Auto) 37.9 % (13.4-35.0) H 03/21/17 04:16 [place] % (Auto) 11.3 % (0.0-7.3) H 03/21/17 04:16 Eos % (Auto) 2.9 % (0.0-4.3) 03/21/17 04:16 Baso % (Auto) 0.8 % (0.0-1.8) 03/21/17 04:16 Lymph # 1.4 K/mm3 (1.2-5.4) 03/21/17 04:16 [place] # 0.4 K/mm3 (0.0-0.8) 03/21/17 04:16 Eos # 0.1 K/mm3 (0.0-0.4) 03/21/17 04:16 Baso # 0.0 K/mm3 (0.0-0.1) 03/21/17 04:16 Seg Neutrophils % 47.1 % (40.0-70.0) 03/21/17 04:16 Seg Neutrophils # 1.7 K/mm3 (1.8-7.7) L 03/21/17 04:16 D-Dimer 567.07 ng/mlDDU (0-234) H 03/21/17 12:23 Sodium 139 mmol/L (137-145) 03/21/17 04:16 Potassium 4.2 mmol/L (3.6-5.0) 03/21/17 04:16 Chloride 98.5 mmol/L (98-107) 03/21/17 04:16 Carbon Dioxide 28 mmol/L (22-30) 03/21/17 04:16 Anion Gap 17 mmol/L 03/21/17 04:16 BUN 7 mg/dL (7-17) 03/21/17 04:16 Creatinine 0.7 mg/dL (0.7-1.2) 03/21/17 04:16 Estimated GFR > 60 ml/min 03/21/17 04:16 BUN/Creatinine Ratio 10 % 03/21/17 04:16 Glucose 123 mg/dL (65-100) H 03/21/17 04:16 Calcium 8.8 mg/dL (8.4-10.2) 03/21/17 04:16 Troponin T < 0.010 ng/mL (0.00-0.029) 03/21/17 09:21 HCG, Qual Negative (Negative) 03/21/17 04:16 - Imaging and Cardiology Chest x-ray: image reviewed (no acute findings) Imaging and Cardiology: VQ scan, no mismatch Assessment and Plan Assessment and plan: 46F with asthma exacerbation Asthma exacerbation steroids, nebulizers, and antibiotics. acute respiratory failure continue oxygen supplementation Morbid obesity has been counseled about lifestyle modification period after acute issues are resolved, happy so we can refer her to a weight loss program.
[2017-03-21] MEDS ORDERED: TYLENOL PO PRN (17:55)
[2017-03-21] MEDS ORDERED: MILK OF MAGNESIA PO PRN (17:55)
[2017-03-21] MEDS ORDERED: DULCOLAX PR PRN (17:55)
[2017-03-21] MEDS ORDERED: ZOFRAN IV PRN (17:55)
[2017-03-21] MEDS ORDERED: ULTRAM PO PRN ×2 (17:58→22:56)
[2017-03-21] MEDS ORDERED: ZITHROMAX 500 MG in NACL 0.9% 250ML 250 ML IV SCH (20:00)
[2017-03-21] MEDS: DUONEB *Not for PRN Use IH SCH (21:01)
[2017-03-21] MEDS: PULMICORT IH SCH (21:01)
[2017-03-21] MEDS ORDERED: LaMICtal PO SCH (23:30)
[2017-03-22] MEDS: ULTRAM PO SCH ×3 (00:07→21:42)
[2017-03-22] MEDS: LaMICtal PO SCH ×4 (00:08→21:43)
[2017-03-22] MEDS: VOLTAREN DR PO SCH ×3 (00:09→21:41)
[2017-03-22] MEDS: DUONEB *Not for PRN Use IH SCH ×4 (02:46→19:38)
[2017-03-22] MEDS: NORCO 5/325 PO PRN ×2 (06:03→17:17)
[2017-03-22] MEDS: SYNTHROID 150 MCG, SYNTHROID 25 MCG PO SCH (06:04)
[2017-03-22 07:09] LABS: Anion Gap 20 mmol/L; BUN/Creatinine Ratio 21; Blood Urea Nitrogen 15 mg/dL (7-17); Calcium 8.9 mg/dL (8.4-10.2); Carbon Dioxide 23 mmol/L (22-30); Chloride 100.5 mmol/L (98-107); Glucose 217 mg/dL (65-100); Potassium 4.1 mmol/L (3.6-5.0); Sodium 139 mmol/L (137-145)
--- NOTE | 2017-03-22 08:12 | Progress Note ---
<ULYSSES EARL - Last Filed: 03/22/17 14:08> Assessment and Plan Assessment and plan: Patient is a 46 year old woman with history of morbid obesity and Mild intermittent allergic asthma. She states that she only has two asthma attacks every year. She presents with two to three days of progressive shortness of breath, Dyspnea on exertion and wheezing. Acute respiratory failure with hypoxia Patient oxygen saturation improved with 2LNC; currently SPO2 98%. No acute respiratory distress noted. Aggressive Nebulizers/Inhalers ABG when necessary Oxygen supplement Supportive care Asthma exacerbation Continue on Duoneb every 6 hours Wean IV steroid Solumedrol Continue empiric IV azithromycin Oxygen as necessary Hypertensive urgency Continue home antihypertensive medications Closely monitor blood pressure Elevated d-dimer CTA showed that in pulmonary embolus with moderate burden of thrombus in bilateral lower lobe arteries. VL Theo. LE doppler no evidence of DVT Started on heparin drip and we will transition to eliis Hematology consulted for outpatient follow up Pain control Supportive care Morbid obesity Has been counseled about lifestyle modification period after acute issues are resolved, happy so we can refer her to a weight loss program. DVT prophylaxis heparin drip History Interval history: Patient complains shortness of breath and dyspnea on exertion. She denies chest pain. Labs and nursing notes reviewed. Hospitalist Physical - Constitutional Vitals: Temp Pulse Resp BP Pulse Ox 98.1 F 116 H 20 134/70 93 03/22/17 03:17 03/22/17 03:17 03/22/17 06:03 03/22/17 03:17 03/22/17 03:17 General appearance: Present: no acute distress, well-nourished, obese - EENT Eyes: Present: PERRL ENT: hearing intact - Neck Neck: Present: supple - Respiratory Respiratory effort: normal Respiratory: bilateral: diminished - Cardiovascular Rhythm: regular Heart Sounds: Present: S1 & S2 - Abdominal General gastrointestinal: soft, non-tender - Integumentary Integumentary: Present: clear, warm, dry - Psychiatric Psychiatric: appropriate mood/affect - Neurologic Neurologic: moves all extremities - Allied Health Allied health notes reviewed: nursing Results - Labs CBC & Chem 7: 03/21/17 04:16 03/22/17 05:35 Labs: Laboratory Last Values WBC 3.6 K/mm3 (4.5-11.0) L 03/21/17 04:16 RBC 4.71 M/mm3 (3.65-5.03) 03/21/17 04:16 Hgb 13.3 gm/dl (10.1-14.3) 03/21/17 04:16 Hct 40.3 % (30.3-42.9) 03/21/17 04:16 MCV 86 fl (79-97) 03/21/17 04:16 MCH 28 pg (28-32) 03/21/17 04:16 MCHC 33 % (30-34) 03/21/17 04:16 RDW 15.2 % (13.2-15.2) 03/21/17 04:16 Plt Count 259 K/mm3 (140-440) 03/21/17 04:16 Lymph % (Auto) 37.9 % (13.4-35.0) H 03/21/17 04:16 [place] % (Auto) 11.3 % (0.0-7.3) H 03/21/17 04:16 Eos % (Auto) 2.9 % (0.0-4.3) 03/21/17 04:16 Baso % (Auto) 0.8 % (0.0-1.8) 03/21/17 04:16 Lymph # 1.4 K/mm3 (1.2-5.4) 03/21/17 04:16 [place] # 0.4 K/mm3 (0.0-0.8) 03/21/17 04:16 Eos # 0.1 K/mm3 (0.0-0.4) 03/21/17 04:16 Baso # 0.0 K/mm3 (0.0-0.1) 03/21/17 04:16 Seg Neutrophils % 47.1 % (40.0-70.0) 03/21/17 04:16 Seg Neutrophils # 1.7 K/mm3 (1.8-7.7) L 03/21/17 04:16 D-Dimer 567.07 ng/mlDDU (0-234) H 03/21/17 12:23 Sodium 139 mmol/L (137-145) 03/22/17 05:35 Potassium 4.1 mmol/L (3.6-5.0) 03/22/17 05:35 Chloride 100.5 mmol/L (98-107) 03/22/17 05:35 Carbon Dioxide 23 mmol/L (22-30) 03/22/17 05:35 Anion Gap 20 mmol/L 03/22/17 05:35 BUN 15 mg/dL (7-17) 03/22/17 05:35 Creatinine 0.7 mg/dL (0.7-1.2) 03/22/17 05:35 Estimated GFR > 60 ml/min 03/22/17 05:35 BUN/Creatinine Ratio 21 % 03/22/17 05:35 Glucose 217 mg/dL (65-100) H 03/22/17 05:35 Calcium 8.9 mg/dL (8.4-10.2) 03/22/17 05:35 Troponin T < 0.010 ng/mL (0.00-0.029) 03/21/17 09:21 HCG, Qual Negative (Negative) 03/21/17 04:16 <LUPE ANTHONY M - Last Filed: 03/23/17 07:56> Assessment and Plan Assessment and plan: I saw and evaluated the patient. I agree with the findings and the plan of care as documented in the Nurse Practitioner's progress note. Hospitalist Physical - Constitutional Vitals: Temp Pulse Resp BP Pulse Ox 98.6 F 105 H 18 123/82 96 03/23/17 07:52 03/23/17 07:52 03/23/17 07:52 03/23/17 07:52 03/23/17 07:52 Results - Labs CBC & Chem 7: 03/22/17 13:26 03/22/17 05:35 Labs: Laboratory Last Values WBC 3.6 K/mm3 (4.5-11.0) L 03/21/17 04:16 RBC 4.71 M/mm3 (3.65-5.03) 03/21/17 04:16 Hgb 13.7 gm/dl (10.1-14.3) 03/22/17 13:26 Hct 41.8 % (30.3-42.9) 03/22/17 13:26 MCV 86 fl (79-97) 03/21/17 04:16 MCH 28 pg (28-32) 03/21/17 04:16 MCHC 33 % (30-34) 03/21/17 04:16 RDW 15.2 % (13.2-15.2) 03/21/17 04:16 Plt Count 303 K/mm3 (140-440) 03/22/17 13:26 Lymph % (Auto) 37.9 % (13.4-35.0) H 03/21/17 04:16 [place] % (Auto) 11.3 % (0.0-7.3) H 03/21/17 04:16 Eos % (Auto) 2.9 % (0.0-4.3) 03/21/17 04:16 Baso % (Auto) 0.8 % (0.0-1.8) 03/21/17 04:16 Lymph # 1.4 K/mm3 (1.2-5.4) 03/21/17 04:16 [place] # 0.4 K/mm3 (0.0-0.8) 03/21/17 04:16 Eos # 0.1 K/mm3 (0.0-0.4) 03/21/17 04:16 Baso # 0.0 K/mm3 (0.0-0.1) 03/21/17 04:16 Seg Neutrophils % 47.1 % (40.0-70.0) 03/21/17 04:16 Seg Neutrophils # 1.7 K/mm3 (1.8-7.7) L 03/21/17 04:16 PT 12.9 Sec. (12.2-14.9) 03/22/17 13:26 INR 0.93 (0.87-1.13) 03/22/17 13:26 APTT 29.2 Sec. (24.2-36.6) 03/22/17 13:26 D-Dimer 567.07 ng/mlDDU (0-234) H 03/21/17 12:23 Heparin Anti-Xa Level 0.33 U.I./ml (0.3-0.7) 03/22/17 21:40 Sodium 139 mmol/L (137-145) 03/22/17 05:35 Potassium 4.1 mmol/L (3.6-5.0) 03/22/17 05:35 Chloride 100.5 mmol/L (98-107) 03/22/17 05:35 Carbon Dioxide 23 mmol/L (22-30) 03/22/17 05:35 Anion Gap 20 mmol/L 03/22/17 05:35 BUN 15 mg/dL (7-17) 03/22/17 05:35 Creatinine 0.7 mg/dL (0.7-1.2) 03/22/17 05:35 Estimated GFR > 60 ml/min 03/22/17 05:35 BUN/Creatinine Ratio 21 % 03/22/17 05:35 Glucose 217 mg/dL (65-100) H 03/22/17 05:35 Calcium 8.9 mg/dL (8.4-10.2) 03/22/17 05:35 Troponin T < 0.010 ng/mL (0.00-0.029) 03/21/17 09:21 HCG, Qual Negative (Negative) 03/21/17 04:16
[2017-03-22] MEDS: PULMICORT IH SCH ×2 (09:16→19:38)
[2017-03-22] MEDS ORDERED: LOVENOX SUB-Q SCH (10:00)
[2017-03-22] MEDS ORDERED: LaMICtal PO SCH (10:00)
[2017-03-22] MEDS ORDERED: ROBITUSSIN DM PO PRN (10:01)
[2017-03-22] MEDS ORDERED: GUAIFENESIN DM SYRUP PO PRN ×2 (10:01→11:23)
[2017-03-22] MEDS ORDERED: NACL ONE (12:08)
--- NOTE | 2017-03-22 12:54 | Cat Scan Report ---
CT CHEST WITH CONTRAST: 03/22/17 CLINICAL: Chest pain.Shortness of breath. TECHNIQUE: PE protocol with volumetric acquisition and 1.25 mm scan reconstructions after the uneventful intravenous injection of 100 cc Omnipaque 350. Consent was obtained prior to the administration of contrast. FINDINGS: Less than optimal opacification of the pulmonary arteries which is likely related to a large body habitus and suboptimal timing of the bolus. Despite suboptimal opacification, there is suspicious deficiency in opacification of bilateral lower lobe arteries when compared to the upper lobe arteries and the main pulmonary artery. The aorta is more dense than the main pulmonary artery. Normal heart and aorta. Normal lungs and mediastinum. Normal thyroid, trachea and esophagus. The upper abdomen is unremarkable. The bones and soft tissues are normal. IMPRESSION: Positive study for pulmonary embolus with a moderate burden of thrombus in bilateral lower lobe arteries. Verbal report was given to the nurse Tristan Cordero at 12:50 on 03/22/17. KENNETH MILLAN
[2017-03-22 14:09] LABS: Hematocrit 41.8 % (30.3-42.9); Hemoglobin 13.7 gm/dl (10.1-14.3)
[2017-03-22 14:22] LABS: INR 0.93 (0.87-1.13)
[2017-03-22 14:23] LABS: Partial Thromboplastin Time 29.2 Sec. (24.2-36.6)
[2017-03-22] MEDS: HEPARIN/ 0.45% NACL-25,000 UNIT/500 ML 25,000 UNIT/500 ML BAG IV SCH ×2 (15:31→22:49)
[2017-03-22] MEDS: ZITHROMAX PO SCH (21:42)
[2017-03-23] MEDS: NORCO 5/325 PO PRN ×2 (01:52→19:00)
[2017-03-23] MEDS: DUONEB *Not for PRN Use IH SCH ×4 (02:13→19:30)
[2017-03-23] MEDS: SYNTHROID 150 MCG, SYNTHROID 25 MCG PO SCH (06:04)
--- NOTE | 2017-03-23 08:05 | Vascular Lab Report ---
LOWER EXTREMITY VENOUS DUPLEX: REASON FOR EXAM: Pain and swelling of the lower extremities. Elevated d-dimer. COMMENTS ON THE RIGHT: All veins visualized are freely compressible without evidence of internal echogenicity. Flow is spontaneous and phasic throughout. COMMENTS ON THE LEFT: All veins visualized are freely compressible without evidence of internal echogenicity. Flow is spontaneous and phasic throughout. IMPRESSION: No evidence of acute or chronic deep venous thrombosis in either lower extremity.
--- NOTE | 2017-03-23 08:11 | Progress Note ---
<ULYSSES EARL - Last Filed: 03/24/17 18:38> Assessment and Plan Assessment and plan: Patient is a 46 year old woman with history of morbid obesity and Mild intermittent allergic asthma. She presents with two to three days of progressive shortness of breath, Dyspnea on exertion and wheezing. Acute respiratory failure with hypoxia Patient oxygen saturation improved with 2LNC; currently SPO2 98%. No acute respiratory distress noted. Aggressive Nebulizers/Inhalers ABG when necessary Oxygen supplement Supportive care Disposition patient might go home tomorrow if she continue to improve Asthma exacerbation Continue on Duoneb every 6 hours Wean IV steroid Solumedrol Continue empiric IV azithromycin Oxygen as necessary Hypertensive urgency Continue home antihypertensive medications Closely monitor blood pressure Pulmonary embolus CTA showed that in pulmonary embolus with moderate burden of thrombus in bilateral lower lobe arteries. VL Theo. LE doppler no evidence of DVT Continue on heparin drip and we will transition to eliquis Hematology consulted for outpatient follow up Pain control Supportive care Morbid obesity Counseled about reducing weight. DVT prophylaxis heparin drip History Interval history: Patient denies shortness of breath or chest pain Hospitalist Physical - Constitutional Vitals: Temp Pulse Resp BP Pulse Ox 98.6 F 105 H 18 123/82 96 03/23/17 07:52 03/23/17 07:52 03/23/17 07:52 03/23/17 07:52 03/23/17 07:52 General appearance: Present: no acute distress, well-nourished, obese - EENT Eyes: Present: PERRL ENT: hearing intact - Neck Neck: Present: supple - Respiratory Respiratory effort: normal Respiratory: bilateral: CTA - Cardiovascular Rhythm: regular Heart Sounds: Present: S1 & S2 - Extremities Extremities: no ischemia - Abdominal General gastrointestinal: soft, non-tender - Integumentary Integumentary: Present: clear, warm, dry - Psychiatric Psychiatric: appropriate mood/affect - Neurologic Neurologic: moves all extremities - Allied Health Allied health notes reviewed: nursing Results - Labs CBC & Chem 7: 03/24/17 07:03 03/22/17 05:35 Labs: Laboratory Last Values WBC 3.6 K/mm3 (4.5-11.0) L 03/21/17 04:16 RBC 4.71 M/mm3 (3.65-5.03) 03/21/17 04:16 Hgb 13.7 gm/dl (10.1-14.3) 03/22/17 13: Hct 41.8 % (30.3-42.9) 03/22/17 13:26 MCV 86 fl (79-97) 03/21/17 04:16 MCH 28 pg (28-32) 03/21/17 04:16 MCHC 33 % (30-34) 03/21/17 04:16 RDW 15.2 % (13.2-15.2) 03/21/17 04:16 Plt Count 303 K/mm3 (140-440) 03/22/17 13:26 Lymph % (Auto) 37.9 % (13.4-35.0) H 03/21/17 04:16 [place] % (Auto) 11.3 % (0.0-7.3) H 03/21/17 04:16 Eos % (Auto) 2.9 % (0.0-4.3) 03/21/17 04:16 Baso % (Auto) 0.8 % (0.0-1.8) 03/21/17 04:16 Lymph # 1.4 K/mm3 (1.2-5.4) 03/21/17 04:16 [place] # 0.4 K/mm3 (0.0-0.8) 03/21/17 04:16 Eos # 0.1 K/mm3 (0.0-0.4) 03/21/17 04:16 Baso # 0.0 K/mm3 (0.0-0.1) 03/21/17 04:16 Seg Neutrophils % 47.1 % (40.0-70.0) 03/21/17 04:16 Seg Neutrophils # 1.7 K/mm3 (1.8-7.7) L 03/21/17 04:16 PT 12.9 Sec. (12.2-14.9) 03/22/17 13:26 INR 0.93 (0.87-1.13) 03/22/17 13:26 APTT 29.2 Sec. (24.2-36.6) 03/22/17 13:26 D-Dimer 567.07 ng/mlDDU (0-234) H 03/21/17 12:23 Heparin Anti-Xa Level 0.33 U.I./ml (0.3-0.7) 03/22/17 21:40 Sodium 139 mmol/L (137-145) 03/22/17 05:35 Potassium 4.1 mmol/L (3.6-5.0) 03/22/17 05:35 Chloride 100.5 mmol/L (98-107) 03/22/17 05:35 Carbon Dioxide 23 mmol/L (22-30) 03/22/17 05:35 Anion Gap 20 mmol/L 03/22/17 05:35 BUN 15 mg/dL (7-17) 03/22/17 05:35 Creatinine 0.7 mg/dL (0.7-1.2) 03/22/17 05:35 Estimated GFR > 60 ml/min 03/22/17 05:35 BUN/Creatinine Ratio 21 % 03/22/17 05:35 Glucose 217 mg/dL (65-100) H 03/22/17 05:35 Calcium 8.9 mg/dL (8.4-10.2) 03/22/17 05:35 Troponin T < 0.010 ng/mL (0.00-0.029) 03/21/17 09:21 HCG, Qual Negative (Negative) 03/21/17 04:16 <LUPE ANTHONY M - Last Filed: 03/25/17 16:20> Assessment and Plan Assessment and plan: I saw and evaluated the patient. I agree with the findings and the plan of care as documented in the Nurse Practitioner's progress note. Hospitalist Physical - Constitutional Vitals: Temp Pulse Resp BP Pulse Ox 98.3 F 98 H 20 167/85 97 03/25/17 08:13 03/25/17 08:45 03/25/17 08:45 03/25/17 08:13 03/25/17 10:00 Results - Labs CBC & Chem 7: 03/24/17 07:03 03/22/17 05:35 Labs: Laboratory Last Values WBC 3.6 K/mm3 (4.5-11.0) L 03/21/17 04:16 RBC 4.71 M/mm3 (3.65-5.03) 03/21/17 04:16 Hgb 12.8 gm/dl (10.1-14.3) 03/24/17 07:03 Hct 38.9 % (30.3-42.9) 03/24/17 07:03 MCV 86 fl (79-97) 03/21/17 04:16 MCH 28 pg (28-32) 03/21/17 04:16 MCHC 33 % (30-34) 03/21/17 04:16 RDW 15.2 % (13.2-15.2) 03/21/17 04:16 Plt Count 338 K/mm3 (140-440) 03/24/17 07:03 Lymph % (Auto) 37.9 % (13.4-35.0) H 03/21/17 04:16 [place] % (Auto) 11.3 % (0.0-7.3) H 03/21/17 04:16 Eos % (Auto) 2.9 % (0.0-4.3) 03/21/17 04:16 Baso % (Auto) 0.8 % (0.0-1.8) 03/21/17 04:16 Lymph # 1.4 K/mm3 (1.2-5.4) 03/21/17 04:16 [place] # 0.4 K/mm3 (0.0-0.8) 03/21/17 04:16 Eos # 0.1 K/mm3 (0.0-0.4) 03/21/17 04:16 Baso # 0.0 K/mm3 (0.0-0.1) 03/21/17 04:16 Seg Neutrophils % 47.1 % (40.0-70.0) 03/21/17 04:16 Seg Neutrophils # 1.7 K/mm3 (1.8-7.7) L 03/21/17 04:16 PT 12.9 Sec. (12.2-14.9) 03/22/17 13:26 INR 0.93 (0.87-1.13) 03/22/17 13:26 APTT 29.2 Sec. (24.2-36.6) 03/22/17 13:26 D-Dimer 567.07 ng/mlDDU (0-234) H 03/21/17 12:23 Heparin Anti-Xa Level 0.29 U.I./ml (0.3-0.7) L 03/24/17 07:04 Sodium 139 mmol/L (137-145) 03/22/17 05:35 Potassium 4.1 mmol/L (3.6-5.0) 03/22/17 05:35 Chloride 100.5 mmol/L (98-107) 03/22/17 05:35 Carbon Dioxide 23 mmol/L (22-30) 03/22/17 05:35 Anion Gap 20 mmol/L 03/22/17 05:35 BUN 15 mg/dL (7-17) 03/22/17 05:35 Creatinine 0.7 mg/dL (0.7-1.2) 03/22/17 05:35 Estimated GFR > 60 ml/min 03/22/17 05:35 BUN/Creatinine Ratio 21 % 03/22/17 05:35 Glucose 217 mg/dL (65-100) H 03/22/17 05:35 Calcium 8.9 mg/dL (8.4-10.2) 03/22/17 05:35 Troponin T < 0.010 ng/mL (0.00-0.029) 03/21/17 09:21 HCG, Qual Negative (Negative) 03/21/17 04:16
[2017-03-23] MEDS: PULMICORT IH SCH ×2 (08:52→19:30)
[2017-03-23] MEDS: HEPARIN/ 0.45% NACL-25,000 UNIT/500 ML 25,000 UNIT/500 ML BAG IV SCH (09:25)
[2017-03-23] MEDS: ULTRAM PO SCH ×2 (09:26→22:08)
[2017-03-23] MEDS: VOLTAREN DR PO SCH ×2 (09:31→22:10)
--- NOTE | 2017-03-23 10:58 | Discharge Summary ---
Providers - Providers Date of Admission: 03/21/17 17:55 Date of discharge: 03/23/17 Attending physician: LUPE ANTHONY MD Primary care physician: CLINTON [facility] Hospitalization Condition: Stable Disposition: DC-30 STILL A PATIENT Exam - Constitutional Vitals: Temp Pulse Resp BP Pulse Ox 98.6 F 105 H 18 123/82 96 03/23/17 07:52 03/23/17 07:52 03/23/17 07:52 03/23/17 07:52 03/23/17 07:52 Plan Follow up with: JOE CALIX MD [Referring] - 3-5 Days
[2017-03-23] MEDS ORDERED: PROVENTIL IH PRN (14:04)
[2017-03-23] MEDS: ZITHROMAX PO SCH (22:09)
[2017-03-23] MEDS: LaMICtal PO SCH (22:09)
[2017-03-24] MEDS: DUONEB *Not for PRN Use IH SCH ×4 (01:20→21:06)
[2017-03-24] MEDS: HEPARIN/ 0.45% NACL-25,000 UNIT/500 ML 25,000 UNIT/500 ML BAG IV SCH (04:05)
[2017-03-24] MEDS: SYNTHROID PO SCH ×2 (05:32→05:33)
[2017-03-24 07:43] LABS: Hematocrit 38.9 % (30.3-42.9); Hemoglobin 12.8 gm/dl (10.1-14.3)
[2017-03-24] MEDS: PULMICORT IH SCH ×2 (07:54→21:06)
--- NOTE | 2017-03-24 09:41 | Hem/Onc Consultation ---
History of Present Illness - Reason for Consult Consult date: 03/24/17 - History of Present Illness dictated We will order hyper-audible workup. Patient switched to eliquis from heparin Past History Past Medical History: other (asthma, morbid obesity, hypothyroidism, OA, ) Past Surgical History: , Other (tubal ligation, Right foot surgery with metal plates in it. ) Social history: no significant social history Family history: other (asthma on both sides) Medications and Allergies Allergies Allergy/AdvReac Type Severity Reaction Status Date / Time aspirin Allergy Anaphylaxis Verified 08/16/16 23:29 ibuprofen Allergy Anaphylaxis Verified 08/16/16 23:30 Penicillins Allergy Anaphylaxis Verified 08/16/16 23:29 shellfish derived Allergy Anaphylaxis Verified 08/16/16 23:31 Sulfa (Sulfonamide Allergy Unknown Verified 08/16/16 23:30 Antibiotics) tuberculin,PPD,multi-puncture Allergy Anaphylaxis Verified 08/16/16 23:32 Home Medications Medication Instructions Recorded Confirmed Last Taken Type Cyclobenzaprine HCl [Flexeril 5 MG 5 mg PO PRN PRN 03/22/17 03/22/17 Unknown History TAB] Diclofenac Dr [Voltaren Dr] 75 mg PO BID 03/22/17 03/22/17 Unknown History Levothyroxine Sodium [Synthroid] 175 mcg PO QAM 03/22/17 03/22/17 Unknown History Pnv No.95/Ferrous Fum/Folic AC 1 tab PO QDAY 03/22/17 03/22/17 Unknown History [ Vitamins Tablet] lamoTRIgine [LaMICtal] 150 mg PO QHS 03/22/17 03/22/17 Unknown History traMADol [Ultram 50 MG tab] 100 mg PO BID 03/22/17 03/22/17 Unknown History Active Meds: Active Medications Acetaminophen (Tylenol) 650 mg PO Q4H PRN PRN Reason: Pain MILD(1-3)/Fever >100.5/GARNICA Acetaminophen/Hydrocodone Bitart ([employer] 5/325) 1 each PO Q6H PRN PRN Reason: Pain, Moderate (4-6) Last Admin: 03/23/17 19:00 Dose: 1 each Albuterol (Proventil) 2.5 mg IH Q4HRT PRN PRN Reason: Shortness Of Breath Albuterol/Ipratropium (Duoneb *Not For Prn Use*) 1 ampul IH Q6HRT [facility] Last Admin: 03/24/17 07:54 Dose: 1 ampul Apixaban (Eliquis) 10 mg PO Q12HR [facility] PRN Reason: Protocol Azithromycin (Zithromax) 500 mg PO QHS [facility] Last Admin: 03/23/17 22:09 Dose: 500 mg Bisacodyl (Dulcolax) 10 mg MI QDAY PRN PRN Reason: Constipation unrelieved by MOM Budesonide (Pulmicort) 0.5 mg IH Q12HRT [facility] Last Admin: 03/24/17 07:54 Dose: 0.5 mg Diclofenac Sodium (Voltaren Dr) 75 mg PO BID [facility] Last Admin: 03/23/17 22:10 Dose: 75 mg Guaifenesin (Guaifenesin Dm Syrup) 20 ml PO Q4H PRN PRN Reason: Cough Lamotrigine (Lamictal) 150 mg PO QHS [facility] Last Admin: 03/23/17 22:09 Dose: 150 mg Levothyroxine Sodium (Synthroid) 150 mcg PO DAILY@0600 [facility] Last Admin: 03/24/17 05:33 Dose: 150 mcg Levothyroxine Sodium (Synthroid) 25 mcg PO DAILY@0600 [facility] Last Admin: 03/24/17 05:32 Dose: 25 mcg Magnesium Hydroxide (Milk Of Magnesia) 30 ml PO Q4H PRN PRN Reason: Constipation Methylprednisolone Sodium Succinate (Solu-Medrol) 40 mg IV Q12H [facility] Last Admin: 03/24/17 02:20 Dose: 40 mg Ondansetron HCl (Zofran) 4 mg IV Q8H PRN PRN Reason: N/V unrelieved by Reglan Tramadol HCl (Ultram) 100 mg PO BID [facility] Last Admin: 03/23/17 22:08 Dose: 100 mg Exam - Constitutional Vitals: Last Vital Signs Temp 98.1 F 03/24/17 00:19 Pulse 94 H 03/24/17 08:09 Resp 16 03/24/17 08:09 BP 146/80 03/24/17 00:19 Pulse Ox 94 03/24/17 07:55 Results - Labs lab Results: Laboratory Results - last 24 hr 03/23/17 03/24/17 03/24/17 22:57 07:03 07:04 Hgb 12.8 Hct 38.9 Plt Count 338 Heparin Anti-Xa Level 0.18 L 0.29 L
[2017-03-24] MEDS: VOLTAREN DR PO SCH ×2 (10:03→22:11)
[2017-03-24] MEDS: ULTRAM PO SCH ×2 (10:04→22:05)
[2017-03-24] MEDS: ELIQUIS PO SCH ×2 (10:04→22:05)
[2017-03-24] MEDS: NORCO 5/325 PO PRN (14:00)
--- NOTE | 2017-03-24 14:35 | Discharge Summary ---
<ULYSSES EARL - Last Filed: 03/25/17 17:10> Providers - Providers Date of Admission: 03/21/17 17:55 Date of discharge: 03/24/17 Attending physician: BUCK MADRIGAL MD 03/23/17 16:25 Consult to Physician [CONS] Routine Consulting Provider: VANESSA CLEMENT Reason For Exam: PE Place consult to:: DR. CLEMENT Notified:: A.S. Phone number called:: [phone] Was contact made?: Yes If yes, spoke with:: GEO Time called:: 17:00 Comment:: DARI NOTIFIED Primary care physician: CLINTON [facility] Hospitalization Reason for admission: PE Condition: Stable Hospital course: Patient is a 46 year old woman with history of morbid obesity and Mild intermittent allergic asthma. She presents with two to three days of progressive shortness of breath, Dyspnea on exertion and wheezing. Patient was diagnosed with Acute respiratory failure with hypoxia, Asthma exacerbation, Pulmonary embolus and Morbid obesity. VL Theo. LE doppler no evidence of DVT. CTA showed that in pulmonary embolus with moderate burden of thrombus in bilateral lower lobe arteries. She was treated with heparin drip. She is being discharged on Eliquis. Also she was treated with supplemental oxygen, aggressive nebulizer therapy, IV steroids and antibiotics. Patient completed a full course of antibiotic. No further need of antibiotics. Also D/C with oral steroid taper upon discharge. Patient clinically improved. Patient was advised to follow up with her primary care. Discharge Diagnosed Acute respiratory failure with hypoxia Asthma exacerbation Hypertensive urgency Pulmonary embolus Morbid obesity Disposition: - TO HOME OR SELFCARE Time spent for discharge: 35 minutes Core Measure Documentation - Palliative Care Palliative Care/ Comfort Measures: Not Applicable - Core Measures Any of the following diagnoses?: DVT/PE - VTE Discharge Requirements Deep Vein Thrombosis/Pulmonary Embolism Present on Admission: Yes Has pt received <5 days of overlap therapy or INR<2.0: Yes (Eliquis) Anticoagulant overlap therapy prescribed at discharge: Yes Contraindication No Overlap Therapy order at DC: Not Indicated Exam - Constitutional Vitals: Temp Pulse Resp BP Pulse Ox 97.6 F 96 H 16 120/57 94 03/24/17 07:45 03/24/17 14:00 03/24/17 14:00 03/24/17 07:45 03/24/17 07:55 General appearance: Present: no acute distress - EENT Eyes: Present: PERRL ENT: hearing intact - Neck Neck: Present: supple - Respiratory Respiratory effort: normal Respiratory: bilateral: CTA - Cardiovascular Rhythm: regular Heart Sounds: Present: S1 & S2 - Abdominal General gastrointestinal: Present: soft, non-tender Female genitourinary: Present: deferred - Rectal Rectal Exam: deferred - Integumentary Integumentary: Present: clear, warm, dry - Musculoskeletal Musculoskeletal: strength equal bilaterally - Psychiatric Psychiatric: appropriate mood/affect - Neurologic Neurologic: moves all extremities - Allied Health Allied health notes reviewed: nursing Plan Diet: low fat, low cholesterol, low salt Follow up with: PRIMARY CARE, [Referring] - 3-5 Days Prescriptions: ALBUTEROL Inhaler [ProAir HFA Inhaler] 2 puff IH QID PRN #1 pump PRN Reason: Shortness Of Breath ALBUTEROL NEB's [Proventil 0.083% NEBS] 2.5 mg IH Q4HRT PRN 30 Days nebu PRN Reason: Shortness Of Breath Apixaban [Eliquis] 10 mg PO Q12HR 5 Days tablet Apixaban [Eliquis] 5 mg PO BID 30 Days tablet Budesonide [Pulmicort Respules] 0.5 mg IH Q12HRT 30 Days nebu Prednisone [predniSONE 5 mg (6-Day Pack, 21 Tabs)] 5 mg PO .TAPER #1 tab.ds.pk <BUCK MADRIGAL - Last Filed: 04/20/17 01:14> Providers - Providers Date of Admission: 03/21/17 17:55 Attending physician: BUCK MADRIGAL MD 03/23/17 16:25 Consult to Physician [CONS] Routine Consulting Provider: VANESSA CLEMENT Reason For Exam: PE Place consult to:: DR. CLEMENT Notified:: A.SYaritza Phone number called:: [phone] Was contact made?: Yes If yes, spoke with:: GEO Time called:: 17:00 Comment:: DARI NOTIFIED Primary care physician: CLINTON [facility] Exam - Constitutional Vitals: Temp Pulse Resp BP Pulse Ox 98.3 F 98 H 20 167/85 97 03/25/17 08:13 03/25/17 08:45 03/25/17 08:45 03/25/17 08:13 03/25/17 10:00
--- NOTE | 2017-03-24 14:58 | Progress Note ---
<ULYSSES EARL - Last Filed: 03/24/17 16:24> Assessment and Plan Assessment and plan: Patient is a 46 year old woman with history of morbid obesity and Mild intermittent allergic asthma. She presents with two to three days of progressive shortness of breath, Dyspnea on exertion and wheezing. Acute respiratory failure with hypoxia Resolved Patient oxygen saturation improved currently on room air with SPO2 96%. No acute respiratory distress noted. Aggressive Nebulizers/Inhalers ABG when necessary Oxygen supplement Supportive care Disposition patient might go home tomorrow if she continue to improve Asthma exacerbation Continue on Duoneb every 6 hours Wean IV steroid Solumedrol Continue empiric IV azithromycin Oxygen as necessary Hypertensive urgency Continue home antihypertensive medications Closely monitor blood pressure Pulmonary embolus CTA showed that in pulmonary embolus with moderate burden of thrombus in bilateral lower lobe arteries. VL Theo. LE doppler no evidence of DVT Discontinue heparin drip and started on Eliquis Hematology consulted for outpatient follow up Pain control Supportive care Morbid obesity Counseled about reducing weight. DVT prophylaxis heparin drip History Interval history: Patient denies shortness of breath, chest pain. Labs and nursing notes reviewed. Hospitalist Physical - Constitutional Vitals: Temp Pulse Resp BP Pulse Ox 97.6 F 96 H 16 120/57 94 03/24/17 07:45 03/24/17 14:00 03/24/17 14:00 03/24/17 07:45 03/24/17 07:55 General appearance: Present: no acute distress, well-nourished, obese - EENT Eyes: Present: PERRL ENT: hearing intact - Neck Neck: Present: supple - Respiratory Respiratory effort: normal Respiratory: bilateral: CTA - Cardiovascular Rhythm: regular Heart Sounds: Present: S1 & S2 - Abdominal General gastrointestinal: soft, non-tender - Integumentary Integumentary: Present: clear, warm, dry - Psychiatric Psychiatric: appropriate mood/affect - Neurologic Neurologic: moves all extremities - Allied Health Allied health notes reviewed: nursing Results - Labs CBC & Chem 7: 03/24/17 07:03 03/22/17 05:35 Labs: Laboratory Last Values WBC 3.6 K/mm3 (4.5-11.0) L 03/21/17 04:16 RBC 4.71 M/mm3 (3.65-5.03) 03/21/17 04:16 Hgb 12.8 gm/dl (10.1-14.3) 03/24/17 07:03 Hct 38.9 % (30.3-42.9) 03/24/17 07:03 MCV 86 fl (79-97) 03/21/17 04:16 MCH 28 pg (28-32) 03/21/17 04:16 MCHC 33 % (30-34) 03/21/17 04:16 RDW 15.2 % (13.2-15.2) 03/21/17 04:16 Plt Count 338 K/mm3 (140-440) 03/24/17 07:03 Lymph % (Auto) 37.9 % (13.4-35.0) H 03/21/17 04:16 [place] % (Auto) 11.3 % (0.0-7.3) H 03/21/17 04:16 Eos % (Auto) 2.9 % (0.0-4.3) 03/21/17 04:16 Baso % (Auto) 0.8 % (0.0-1.8) 03/21/17 04:16 Lymph # 1.4 K/mm3 (1.2-5.4) 03/21/17 04:16 [place] # 0.4 K/mm3 (0.0-0.8) 03/21/17 04:16 Eos # 0.1 K/mm3 (0.0-0.4) 03/21/17 04:16 Baso # 0.0 K/mm3 (0.0-0.1) 03/21/17 04:16 Seg Neutrophils % 47.1 % (40.0-70.0) 03/21/17 04:16 Seg Neutrophils # 1.7 K/mm3 (1.8-7.7) L 03/21/17 04:16 PT 12.9 Sec. (12.2-14.9) 03/22/17 13:26 INR 0.93 (0.87-1.13) 03/22/17 13:26 APTT 29.2 Sec. (24.2-36.6) 03/22/17 13:26 D-Dimer 567.07 ng/mlDDU (0-234) H 03/21/17 12:23 Heparin Anti-Xa Level 0.29 U.I./ml (0.3-0.7) L 03/24/17 07:04 Sodium 139 mmol/L (137-145) 03/22/17 05:35 Potassium 4.1 mmol/L (3.6-5.0) 03/22/17 05:35 Chloride 100.5 mmol/L (98-107) 03/22/17 05:35 Carbon Dioxide 23 mmol/L (22-30) 03/22/17 05:35 Anion Gap 20 mmol/L 03/22/17 05:35 BUN 15 mg/dL (7-17) 03/22/17 05:35 Creatinine 0.7 mg/dL (0.7-1.2) 03/22/17 05:35 Estimated GFR > 60 ml/min 03/22/17 05:35 BUN/Creatinine Ratio 21 % 03/22/17 05:35 Glucose 217 mg/dL (65-100) H 03/22/17 05:35 Calcium 8.9 mg/dL (8.4-10.2) 03/22/17 05:35 Troponin T < 0.010 ng/mL (0.00-0.029) 03/21/17 09:21 HCG, Qual Negative (Negative) 03/21/17 04:16 <BUCK MADRIGAL M - Last Filed: 04/20/17 01:13> Assessment and Plan Assessment and plan: I saw and evaluated the patient. I agree with the findings and the plan of care as documented in the Nurse Practitioner's~note Hospitalist Physical - Constitutional Vitals: Temp Pulse Resp BP Pulse Ox 98.3 F 98 H 20 167/85 97 03/25/17 08:13 03/25/17 08:45 03/25/17 08:45 03/25/17 08:13 03/25/17 10:00 Results - Labs CBC & Chem 7: 03/24/17 07:03 03/22/17 05:35 Labs: Laboratory Last Values WBC 3.6 K/mm3 (4.5-11.0) L 03/21/17 04:16 RBC 4.71 M/mm3 (3.65-5.03) 03/21/17 04:16 Hgb 12.8 gm/dl (10.1-14.3) 03/24/17 07:03 Hct 38.9 % (30.3-42.9) 03/24/17 07:03 MCV 86 fl (79-97) 03/21/17 04:16 MCH 28 pg (28-32) 03/21/17 04:16 MCHC 33 % (30-34) 03/21/17 04:16 RDW 15.2 % (13.2-15.2) 03/21/17 04:16 Plt Count 338 K/mm3 (140-440) 03/24/17 07:03 Lymph % (Auto) 37.9 % (13.4-35.0) H 03/21/17 04:16 [place] % (Auto) 11.3 % (0.0-7.3) H 03/21/17 04:16 Eos % (Auto) 2.9 % (0.0-4.3) 03/21/17 04:16 Baso % (Auto) 0.8 % (0.0-1.8) 03/21/17 04:16 Lymph # 1.4 K/mm3 (1.2-5.4) 03/21/17 04:16 [place] # 0.4 K/mm3 (0.0-0.8) 03/21/17 04:16 Eos # 0.1 K/mm3 (0.0-0.4) 03/21/17 04:16 Baso # 0.0 K/mm3 (0.0-0.1) 03/21/17 04:16 Seg Neutrophils % 47.1 % (40.0-70.0) 03/21/17 04:16 Seg Neutrophils # 1.7 K/mm3 (1.8-7.7) L 03/21/17 04:16 PT 12.9 Sec. (12.2-14.9) 03/22/17 13:26 INR 0.93 (0.87-1.13) 03/22/17 13:26 APTT 29.2 Sec. (24.2-36.6) 03/22/17 13:26 D-Dimer 567.07 ng/mlDDU (0-234) H 03/21/17 12:23 Lupus Anticoagulant see below 03/24/17 10:49 LA PTT Baseline See scanned report 03/24/17 10:49 dRVVT Screen 50:50 See scanned report 03/24/17 10:49 dRVVT Mix Interpret See scanned report 03/24/17 10:49 Protein C Antigen >150 % (70-140) H 03/24/17 10:49 Free Protein S 159 % normal (50-147) H 03/24/17 10:49 Total Protein S 132 % (70-140) 03/24/17 10:49 Antithrombin III Ag 77 % (80-120) L 03/24/17 10:49 Heparin Anti-Xa Level 0.29 U.I./ml (0.3-0.7) L 03/24/17 07:04 Factor V Leiden Mutat see below 03/24/17 10:49 Factor V Leiden Interp see below 03/24/17 10:49 Fact V Leiden Review By see below 03/24/17 10:49 Factor V [place] HR2 See scanned result 03/24/17 10:49 Sodium 139 mmol/L (137-145) 03/22/17 05:35 Potassium 4.1 mmol/L (3.6-5.0) 03/22/17 05:35 Chloride 100.5 mmol/L (98-107) 03/22/17 05:35 Carbon Dioxide 23 mmol/L (22-30) 03/22/17 05:35 Anion Gap 20 mmol/L 03/22/17 05:35 BUN 15 mg/dL (7-17) 03/22/17 05:35 Creatinine 0.7 mg/dL (0.7-1.2) 03/22/17 05:35 Estimated GFR > 60 ml/min 03/22/17 05:35 BUN/Creatinine Ratio 21 % 03/22/17 05:35 Glucose 217 mg/dL (65-100) H 03/22/17 05:35 Calcium 8.9 mg/dL (8.4-10.2) 03/22/17 05:35 Troponin T < 0.010 ng/mL (0.00-0.029) 03/21/17 09:21 HCG, Qual Negative (Negative) 03/21/17 04:16 Cardiolipid IgG Ab <14 GPL (<=14) 03/24/17 10:49 Cardiolipid IgA Ab <11 APL (<=11) 03/24/17 10:49 Cardiolipid IgM Ab <12 MPL (<=12) 03/24/17 10:49 Prothrombin Gene Mutate See scanned result 03/24/17 10:49
[2017-03-24] MEDS: ZITHROMAX PO SCH (22:04)
[2017-03-24] MEDS: LaMICtal PO SCH (22:06)
--- NOTE | 2017-03-25 00:59 | Consultation ---
REFERRING PHYSICIAN: Dr. Owen. REASON FOR CONSULTATION: Pulmonary embolus. HISTORY OF PRESENT ILLNESS: The patient is a 46-year-old female with morbid obesity, asthma, osteoarthritis, who has had a lot of lower extremity pain requiring knee injections. She presented to the hospital with worsening progressive shortness of breath, dyspnea on exertion. In the Emergency Room, she was found to have evidence of bilateral pulmonary emboli and moderate burden. Lower extremity Doppler did not show any thrombosis. The patient is on heparin. Because of her pulmonary embolus, Hematology and Oncology consult was called. The patient has a family history of thrombosis in her mother and sister. Both of them also have heart disease. The patient also used to smoke, quit in 2011. SOCIAL HISTORY: The patient on her social history does not currently smoke or drink. FAMILY HISTORY: As mentioned in history of present illness. REVIEW OF SYSTEMS: Positive for leg cramps that she had recently while doing aquatic exercises. The patient denies any previous history of thrombosis. The patient does not take any control pills or any hormonal supplements. PHYSICAL EXAMINATION: GENERAL: The patient is obese. It is hard for her to move around. HEENT: Examination unremarkable. CHEST: Clear. CARDIOVASCULAR SYSTEM: Regular rate and rhythm. ABDOMEN: Obese. EXTREMITIES: She has no edema but tenderness in the left knee. ASSESSMENT: 1. Pulmonary embolus in this patient with morbid obesity. 2. Family history of thrombosis in mother and sister. RECOMMENDATIONS AND PLAN: We will go ahead and do hypercoagulable workup. At this time, we can switch her to Eliquis, which I have already done. I can follow up as outpatient in my office and follow up on the hypercoagulable workup. Because of her morbid obesity and her osteoarthritis, she is unable to move well and we may be considering anticoagulation indefinitely because of her underlying sedentary situation because of her significant osteoarthritis and obesity. We will follow up on the hypercoagulable workup and we can see her in my office as outpatient. JOB# [id number] GEO/MIKY
[2017-03-25] MEDS: DUONEB *Not for PRN Use IH SCH ×2 (02:14→08:06)
[2017-03-25] MEDS: SYNTHROID PO SCH ×2 (06:19)
[2017-03-25] MEDS: PULMICORT IH SCH (08:06)
[2017-03-25 09:00] VITALS: BP 167/85
[2017-03-25] MEDS: ELIQUIS PO SCH (09:35)
[2017-03-25] MEDS: ULTRAM PO SCH (09:35)
[2017-03-25] MEDS: VOLTAREN DR PO SCH (09:36)
[2017-04-05 13:26] LABS: Protein S, Free 159 % normal (50-147); Protein S, Total 132 % (70-140)
== END 2017-03-25 12:00 | disposition home or self-care (01) | DRG 175 ==
LOC: ED 02:23 → 3A 17:55
PROVIDERS: ADMIT Internal Medicine; ATTEND Internal Medicine
DX: I26.99 Other pulmonary embolism without acute cor pulmonale (principal); J96.01 Acute respiratory failure with hypoxia; J45.901 Unspecified asthma with (acute) exacerbation; Z68.43 Body mass index [BMI] 50.0-59.9, adult; E66.01 Morbid (severe) obesity due to excess calories; Z71.3 Dietary counseling and surveillance; I16.0 Hypertensive urgency; Z88.2 Allergy status to sulfonamides; Z88.8 Allergy status to other drugs, medicaments and biological substances; Z88.6 Allergy status to analgesic agent; Z91.013 Allergy to seafood; F32.9 Major depressive disorder, single episode, unspecified; E03.9 Hypothyroidism, unspecified; M17.0 Bilateral primary osteoarthritis of knee; Z87.891 Personal history of nicotine dependence; Z98.51 Tubal ligation status
CPT/HCPCS: 36415; 71010; 71275; 78582; 80048; 83516; 84484; 84703; 85014; 85018; 85025; 85049; 85210; 85220; 85301; 85305; 85379; 85520; 85610; 85613; 85730; 86147; 93005; 93010; 93970; 94640; 94760; 96374; A9540; A9558; J0456; J1644; J1650; J2920; J2930; J7050; Q9967

== ENCOUNTER 2017-04-19 12:38 | Emergency (ER) | payer MEDICAID ==
[2017-04-19] MEDS ORDERED: ZOFRAN IV ONE (12:49)
[2017-04-19] MEDS ORDERED: REGLAN IV ONE (12:49)
[2017-04-19] MEDS ORDERED: NACL 0.9% 1000 ML 1,000 ML IV ONE ×2 (12:49→14:32)
--- NOTE | 2017-04-19 12:56 | Emergency Department Report ---
Chief Complaint: Nausea/Vomiting/Diarrhea Stated Complaint: VOMITING Time Seen by Provider: 04/19/17 12:49 - HPI History of Present Illness: 46 yo female n/v/d for sev days, dark stool, no hemetemsis, no pus, "dark stool ", no cp no poole no stiff neck , int abd cramps. no recent abx or travel, no sick contacts, recent d/c'd hospital for pe takes "blood thinner".no etoh or tobacco. - Exam Vital Signs: Vital Signs 04/19/17 12:42 Temperature 98.3 F Pulse Rate 98 H Respiratory 18 Rate Blood Pressure 149/88 O2 Sat by Pulse 99 Oximetry Physical Exam: Awake alert oriented times 3 afebrile nontoxic obese soft nontender abdomen without mass. MSE screening note: Focused history and physical exam performed. Due to findings the following was ordered: pt to ed for further eval., labs ordered and pending. ED Disposition for MSE Condition: Stable
--- NOTE | 2017-04-19 13:00 | Emergency Department Report ---
ED Abdominal Pain HPI - General Chief Complaint: Nausea/Vomiting/Diarrhea Stated Complaint: VOMITING Time Seen by Provider: 04/19/17 12:49 Source: patient Mode of arrival: Wheelchair Limitations: No Limitations - History of Present Illness Initial Comments: 46-year-old patient presented emergency room reports that she started having nausea and vomiting, headache and abdominal cramping in times abx or Started this morning. Patient said she is having abdominal cramping on and off. She says she has migraine headaches that she's having a migraine that is 10 out of 10. 2/10 abdominal cramping at present. . She reports that she has been seen by a neurologist in the past for migraine headache but she has not seen one at present. Patient have multiple medical problems. She denies any chest pain, nausea or vomiting, shortness of breath. Denies any head trauma. She has similar symptoms that she has migraine headache. She says she does not recall any food that she ate that could've cause her abdominal pain or nausea or vomiting. She said the last time she ate was before she went to bed last night. She says she vomited 3 times today. No diarrhea and no blood in vomitus. [id number] pain medication taken without any relief. Patient denies any back pain, denies any urinary burning frequency or urgency. Denies any history of kidney stones. Patient also multiple allergies. Patient takes Eliquis for pulmonary embolism. Patient reports that she does have a primary care physician. MD Complaint: abdominal pain, other (nausea vomiting. Migraine GARNICA) -: This morning Location: diffuse Radiation: none Migration to: no migration Severity: severe Severity scale (0 -10): 10 Quality: cramping, aching Consistency: intermittent Improves With: nothing Worsens With: nothing Context: other (migraine headache) Associated Symptoms: nausea, vomiting. denies: diarrhea, fever, chills, constipation, dysuria, hematemesis, hematochezia, melena, hematuria, anorexia, syncope Treatments Prior to Arrival: other (OTC meds) - Related Data Home Medications Medication Instructions Recorded Confirmed Last Taken Cyclobenzaprine HCl [Flexeril 5 MG 5 mg PO PRN PRN 03/22/17 03/22/17 Unknown TAB] Diclofenac Dr [Voltaren ] 75 mg PO BID 03/22/17 03/22/17 Unknown Levothyroxine Sodium [Synthroid] 175 mcg PO QAM 03/22/17 03/22/17 Unknown Pnv No.95/Ferrous Fum/Folic AC 1 tab PO QDAY 03/22/17 03/22/17 Unknown [ Vitamins Tablet] lamoTRIgine [LaMICtal] 150 mg PO QHS 03/22/17 03/22/17 Unknown traMADol [Ultram 50 MG tab] 100 mg PO BID 03/22/17 03/22/17 Unknown Previous Rx's Medication Instructions Recorded Last Taken Type ALBUTEROL NEB's [Proventil 0.083% 2.5 mg IH Q4HRT PRN 30 Days nebu 03/24/17 Unknown Rx NEBS] Apixaban [Eliquis] 5 mg PO BID 30 Days tablet 03/24/17 Unknown Rx Apixaban [Eliquis] 10 mg PO Q12HR 5 Days tablet 03/24/17 Unknown Rx Budesonide [Pulmicort Respules] 0.5 mg IH Q12HRT 30 Days nebu 03/24/17 Unknown Rx Levothyroxine [Synthroid] 25 mcg PO DAILY@0600 tablet 03/24/17 Unknown Rx Prednisone [predniSONE 5 mg (6-Day 5 mg PO .TAPER #1 tab.ds.pk 03/24/17 Unknown Rx Pack, 21 Tabs)] lamoTRIgine [LaMICtal] 150 mg PO QHS tablet 03/24/17 Unknown Rx ALBUTEROL Inhaler [ProAir HFA 2 puff IH QID PRN #1 pump 03/25/17 Unknown Rx Inhaler] Promethazine [Phenergan TAB] 25 mg PO Q8HR PRN 4 Days #12 tab 04/19/17 Unknown Rx traMADol [Ultram 50 MG tab] 100 mg PO Q12H PRN 6 Days #12 04/19/17 Unknown Rx tablet Allergies Allergy/AdvReac Type Severity Reaction Status Date / Time aspirin Allergy Anaphylaxis Verified 08/16/16 23:29 ibuprofen Allergy Anaphylaxis Verified 08/16/16 23:30 Penicillins Allergy Anaphylaxis Verified 08/16/16 23:29 shellfish derived Allergy Anaphylaxis Verified 08/16/16 23:31 Sulfa (Sulfonamide Allergy Unknown Verified 08/16/16 23:30 Antibiotics) tuberculin,PPD,multi-puncture Allergy Anaphylaxis Verified 08/16/16 23:32 ED Review of Systems ROS: Stated complaint: VOMITING Other details as noted in HPI Comment: All other systems reviewed and negative Constitutional: no symptoms reported Eyes: denies: eye discharge ENT: denies: ear pain, throat pain, dental pain, congestion Respiratory: no symptoms reported Cardiovascular: denies: chest pain, palpitations, dyspnea on exertion, orthopnea , edema, syncope, paroxysmal nocturnal dyspnea Gastrointestinal: abdominal pain, nausea, vomiting. denies: diarrhea, constipation, hematemesis, melena, hematochezia Genitourinary: denies: urgency, dysuria, frequency, hematuria, discharge, abnormal menses, dyspareunia Musculoskeletal: denies: back pain, joint swelling, arthralgia, myalgia Skin: denies: rash, pruritus Neurological: denies: headache, weakness, numbness, paresthesias, confusion, abnormal gait, vertigo ED Past Medical Hx - Past Medical History Previous Medical History?: Yes Hx Congestive Heart Failure: No Hx Diabetes: No Hx Arthritis: Yes Hx Headaches / Migraines: Yes Hx Psychiatric Treatment: Yes (depression/anxiety) Hx Asthma: Yes Hx COPD: No Additional medical history: osteoarthritis both knees, bone spurs, uses a cane, allergy induced asthma, hypothyroidism, migraines, sciatic nerve, herniated disc in spine - Surgical History Past Surgical History?: Yes Additional Surgical History: plant right foot,, tubaligation - Family History Family history: no significant - Social History Smoking Status: Never Smoker Substance Use Type: None - Medications Home Medications: Home Medications Medication Instructions Recorded Confirmed Last Taken Type Cyclobenzaprine HCl [Flexeril 5 MG 5 mg PO PRN PRN 03/22/17 03/22/17 Unknown History TAB] Diclofenac Dr [Voltaren Dr] 75 mg PO BID 03/22/17 03/22/17 Unknown History Levothyroxine Sodium [Synthroid] 175 mcg PO QAM 03/22/17 03/22/17 Unknown History Pnv No.95/Ferrous Fum/Folic AC 1 tab PO QDAY 03/22/17 03/22/17 Unknown History [ Vitamins Tablet] lamoTRIgine [LaMICtal] 150 mg PO QHS 03/22/17 03/22/17 Unknown History traMADol [Ultram 50 MG tab] 100 mg PO BID 03/22/17 03/22/17 Unknown History ALBUTEROL NEB's [Proventil 0.083% 2.5 mg IH Q4HRT PRN 30 Days nebu 03/24/17 Unknown Rx NEBS] Apixaban [Eliquis] 5 mg PO BID 30 Days tablet 03/24/17 Unknown Rx Apixaban [Eliquis] 10 mg PO Q12HR 5 Days tablet 03/24/17 Unknown Rx Budesonide [Pulmicort Respules] 0.5 mg IH Q12HRT 30 Days nebu 03/24/17 Unknown Rx Levothyroxine [Synthroid] 25 mcg PO DAILY@0600 tablet 03/24/17 Unknown Rx Prednisone [predniSONE 5 mg (6-Day 5 mg PO .TAPER #1 tab.ds.pk 03/24/17 Unknown Rx Pack, 21 Tabs)] lamoTRIgine [LaMICtal] 150 mg PO QHS tablet 03/24/17 Unknown Rx ALBUTEROL Inhaler [ProAir HFA 2 puff IH QID PRN #1 pump 03/25/17 Unknown Rx Inhaler] Promethazine [Phenergan TAB] 25 mg PO Q8HR PRN 4 Days #12 tab 04/19/17 Unknown Rx traMADol [Ultram 50 MG tab] 100 mg PO Q12H PRN 6 Days #12 04/19/17 Unknown Rx tablet ED Physical Exam - General Limitations: No Limitations General appearance: alert, in no apparent distress - Head Head exam: Present: atraumatic, normocephalic, normal inspection - Eye Eye exam: Present: normal appearance, PERRL, EOMI. Absent: periorbital swelling , periorbital tenderness Pupils: Present: normal accommodation - ENT ENT exam: Present: normal exam, normal orophraynx, mucous membranes moist, TM's normal bilaterally, normal external ear exam - Neck Neck exam: Present: normal inspection, full ROM, other (no C-spine tenderness). Absent: tenderness, meningismus, lymphadenopathy, thyromegaly - Respiratory Respiratory exam: Present: normal lung sounds bilaterally. Absent: respiratory distress, chest wall tenderness, accessory muscle use - Cardiovascular Cardiovascular Exam: Present: regular rate, normal rhythm, normal heart sounds. Absent: systolic murmur, diastolic murmur - GI/Abdominal GI/Abdominal exam: Present: soft, normal bowel sounds. Absent: distended, tenderness, guarding, rebound, rigid, organomegaly, mass, bruit, pulsatile mass , hernia - Extremities Exam Extremities exam: Present: normal inspection, full ROM, normal capillary refill , other (no clubbing, cyanosis or edema. +2 pulses to extremities. No neurovascular compromise.). Absent: tenderness, pedal edema, joint swelling, calf tenderness - Back Exam Back exam: Present: normal inspection, full ROM, other (patient uses a walker to ambulate. Chronic osteoarthritis). Absent: tenderness, CVA tenderness (R), CVA tenderness (L), muscle spasm, paraspinal tenderness, vertebral tenderness, rash noted - Neurological Exam Neurological exam: Present: alert, oriented X3, abnormal gait (abnormal gait due to chronic osteoarthritis lower extremity at knee joints and hips), motor sensory deficit (4/5 strength to lower extremity due to severe osteoarthritis. No sensory deficit), reflexes normal - Expanded Neurological Exam Expanded Neurological exam: Absent: innattentive, memory loss-remote event, memory loss- recent event, ataxia, receptive aphasia, expressive aphasia, total aphasia, tremor, protecting the airway Patient oriented to: Present: person, place, time Speech: Present: fluid speech Cranial nerves: EOM's Intact: Normal, Gag Reflex: Normal, Tongue Deviation: Normal, Nystagmus: Normal, Facial Sensation: Normal Cerebellar function: Romberg: Normal Upper motor neuron: Pronator Drift: Normal, Sensory Extinction: Normal Sensory exam: Upper Extremity Light Touch: Normal, Upper Extremity Temperature: Normal, UE 2 Point Discrimination: Normal, Lower Extremity Light Touch: Normal, Lower Extremity Temperature: Normal, LE 2 Point Discrimination: Normal Motor strength exam: RUE: 5, LUE: 5, RLE: 5, LLE: 5 DTR: bicep (R): 2+, bicep (L): 2+, tricep (R): 2+, tricep (L): 2+, knee (R): 2+ , knee (L): 2+, ankle (R): 2+, ankle (L): 2+ Best Eye Response (Mercedes): (4) open spontaneously Best Motor Response (Mercedes): (6) obeys commands Best Verbal Response ([place]): (5) oriented [place] Total: 15 - Psychiatric Psychiatric exam: Present: normal affect, normal mood - Skin Skin exam: Present: warm, dry, intact, normal color. Absent: rash ED Course Vital Signs 12/25/17 12/25/17 12:42 14:58 Temperature 98.3 F Pulse Rate 98 H 96 H Respiratory 18 18 Rate Blood Pressure 149/88 Blood Pressure 137/70 [Right] O2 Sat by Pulse 99 Oximetry - Reevaluation(s) Reevaluation #1: 04/19/17 14:00 Patient given 1 L for IV fluid, Reglan 10 mg IV, Zofran 4 mg IV. Lab work is stable. Patient to have CT of the abdomen spell this without contrast due to shellfish allergy. Morphine 6 milligrams IV ordered. Patient updated and lab work. No change in assessment at this time. Reevaluation #2: 04/19/17 17:00 Patient is stable she says she feels a lot better. Oral challenge started. CT scan still pending. Reevaluation #3: 04/19/17 17:40 Patient stable she was that she is feeling better. ED Medical Decision Making - Lab Data Result diagrams: 04/19/17 13:00 04/19/17 13:00 Lab Results 04/19/17 04/19/17 04/19/17 Range/Units 13:00 13:00 13:26 WBC 5.3 (4.5-11.0) K/mm3 RBC 4.44 (3.65-5.03) M/mm3 Hgb 12.5 (10.1-14.3) gm/dl Hct 38.4 (30.3-42.9) % MCV 87 (79-97) fl MCH 28 (28-32) pg MCHC 33 (30-34) % RDW 14.5 (13.2-15.2) % Plt Count 304 (140-440) K/mm3 Lymph % (Auto) 42.0 H (13.4-35.0) % Gaines % (Auto) 6.5 (0.0-7.3) % Eos % (Auto) 9.1 H (0.0-4.3) % Baso % (Auto) 0.8 (0.0-1.8) % Lymph # 2.2 (1.2-5.4) K/mm3 Gaines # 0.3 (0.0-0.8) K/mm3 Eos # 0.5 H (0.0-0.4) K/mm3 Baso # 0.0 (0.0-0.1) K/mm3 Seg Neutrophils % 41.6 (40.0-70.0) % Seg Neutrophils # 2.2 (1.8-7.7) K/mm3 Sodium 140 (137-145) mmol/L Potassium 4.0 (3.6-5.0) mmol/L Chloride 101.9 (98-107) mmol/L Carbon Dioxide 25 (22-30) mmol/L Anion Gap 17 mmol/L BUN 5 L (7-17) mg/dL Creatinine 0.6 L (0.7-1.2) mg/dL Estimated GFR > 60 ml/min BUN/Creatinine Ratio 8 % Glucose 113 H (65-100) mg/dL Calcium 8.9 (8.4-10.2) mg/dL Total Bilirubin 0.50 (0.1-1.2) mg/dL AST 26 (5-40) units/L ALT 24 (7-56) units/L Alkaline Phosphatase 71 (35-129) units/L Total Protein 6.5 (6.3-8.2) g/dL Albumin 3.8 L (3.9-5) g/dL Albumin/Globulin Ratio 1.4 % Lipase 12 L (13-60) units/L Urine Color Yellow (Yellow) Urine Turbidity Clear (Clear) Urine pH 5.0 (5.0-7.0) Ur Specific [place] 1.013 (1.003-1.030) Urine Protein <15 mg/dl (Negative) mg/dL Urine Glucose (UA) Neg (Negative) mg/dL Urine Ketones Neg (Negative) mg/dL Urine Blood Sm (Negative) Urine Nitrite Neg (Negative) Urine Bilirubin Neg (Negative) Urine Urobilinogen < 2.0 (<2.0) mg/dL Ur Leukocyte Esterase Neg (Negative) Urine WBC (Auto) 1.0 (0.0-6.0) /HPF Urine RBC (Auto) 1.0 (0.0-6.0) /HPF U Epithel Cells (Auto) 3.0 (0-13.0) /HPF Urine Mucus Few /HPF Urine HCG, Qual Negative (Negative) - Radiology Data Radiology results: report reviewed CT scan of the abdomen revealed no acute findings. Appendix is normal, abdominal aorta is normal color, no pathological enlarged lymph nodes identified. No signs of free fluid or free air. No evidence of small bowel dilatation. Urinary bladder is unremarkable. No focal abnormalities identified within the liver parents Lise. The spleen demonstrate normal size and attenuation. No pancreatic abnormalities seen. Kidneys demonstrated no evidence of hydronephrosis or nephrolithiasis. No ureteral calculus identified. There are adrenal glands are unremarkable. - Medical Decision Making ED course: Patient here reports that she's been having nausea and vomiting that started today and she said when she gets migraine headache which she has a history of migraine this happens to her. She says she does not have a neurologist but has seen one in the past that diagnosed her with migraine. Patient also reports that she is having some abdominal cramping and period .patient reported to triage nurse and to a seen in triage area that she has abdominal pain with nausea and vomiting and diarrhea that started several days ago. Patient came back to the emergency room area and reported that she was having migraine and nausea and vomiting that started today. Will exam is normal and she is neurologically intact. Vital signs remained stable throughout ED course. Patient was given 2 L of IV fluid and was able to tolerate oral liquids prior to discharge. She was given Reglan 10 mg IV, Zofran milligrams IV, morphine 6 mg IV. She was then given Decadron 10 mg IV and Benadryl 50 mg IV. Patient says she is feeling much better and she is ready to go. Denies any headache, nausea or vomiting and denies any abdominal pain. I discussed with patient she needs to follow-up with neurologist and primary care physician to manage her chronic migraine headaches. Patient was understanding the discharge instruction and treatment plan patient discharged home with her family member with prescription for Phenergan and Ultram when necessary. Critical care attestation.: If time is entered above; I have spent that time in minutes in the direct care of this critically ill patient, excluding procedure time. ED Disposition Clinical Impression: Abdominal cramping, Morbid obesity with BMI of 60.0-69.9, adult Nausea and vomiting Qualifiers: Vomiting type: unspecified Vomiting Intractability: non-intractable Qualified Code(s): R11.2 - Nausea with vomiting, unspecified Migraine headache Qualifiers: Migraine type: unspecified Status migrainosus presence: without status migrainosus Intractability: not intractable Qualified Code(s): G43.909 - Migraine, unspecified, not intractable, without status migrainosus Disposition: DC-01 TO HOME OR SELFCARE Is pt being admited?: No Does the pt Need Aspirin: No Condition: Stable Instructions: Migraine Headache (ED), Weight Management (ED), Acute Nausea and Vomiting (ED), Obesity (ED), Abdominal Pain (ED) Additional Instructions: Please follow-up with your primary care physician in 2 days and if he do not have a primary care physician follow-up with [facility]. He can call tomorrow to schedule appointment. Please follow up with neurologist in 2 days regarding chronic migraine headache. See referral in discharge instruction paperwork Your headache, abdominal pain and nausea and vomiting returns, please return to the emergency room DWA[place]. Do not drive or operate heavy machinery while taking Phenergan or Ultram as this medication causes drowsiness Ensure that you increase her fluid intake to 2-3 L of fluid per day. Prescriptions: Promethazine [Phenergan TAB] 25 mg PO Q8HR PRN 4 Days #12 tab PRN Reason: Nausea traMADol [Ultram 50 MG tab] 100 mg PO Q12H PRN 6 Days #12 tablet PRN Reason: Pain Referrals: Your, primary care physician [Other] - 04/21/17 [facility] [Outside] - 04/21/17 [facility] [Outside] - 04/21/17 Forms: Accompanied Note, Work/School Release Form(ED)
[2017-04-19 13:48] LABS: Bilirubin,Urine NEG (Negative); Blood,Urine SM (Negative); Ketones,Urine NEG (Negative); Leukocyte Esterase,Urine NEG (Negative); Mucus,Urine FEW /HPF; Nitrite,Urine NEG (Negative); Protein,Urine <15 mg/dL mg/dL (Negative); Urobilinogen,Urine < 2.0 mg/dL (<2.0)
[2017-04-19 13:50] LABS: Basophils % (Auto) 0.8 % (0.0-1.8); Eosinophils % (Auto) 9.1 % (0.0-4.3); Hematocrit 38.4 % (30.3-42.9); Hemoglobin 12.5 gm/dl (10.1-14.3); Mean Corpuscular HGB Conc 33 % (30-34); Mean Corpuscular Hemoglobin 28 pg (28-32); Mean Corpuscular Volume 87 fl (79-97); Platelet Count 304 K/mm3 (140-440); Red Blood Count 4.44 M/mm3 (3.65-5.03); Red Cell Distribution Width 14.5 % (13.2-15.2); White Blood Count 5.3 K/mm3 (4.5-11.0)
[2017-04-19 14:11] LABS: Alanine Aminotransferase 24 units/L (7-56); Albumin 3.8 g/dL (3.9-5); Albumin/Globulin Ratio 1.4 %; Alkaline Phosphatase 71 units/L (35-129); Anion Gap 17 mmol/L; BUN/Creatinine Ratio 8; Blood Urea Nitrogen 5 mg/dL (7-17); Calcium 8.9 mg/dL (8.4-10.2); Carbon Dioxide 25 mmol/L (22-30); Chloride 101.9 mmol/L (98-107); Glucose 113 mg/dL (65-100); Lipase 12 units/L (13-60); Sodium 140 mmol/L (137-145); Total Protein 6.5 g/dL (6.3-8.2)
[2017-04-19] MEDS ORDERED: MORPHINE IV ONE (14:31)
[2017-04-19 15:00] VITALS: BP 137/70
[2017-04-19] MEDS ORDERED: BENADRYL IV ONE (15:13)
[2017-04-19] MEDS ORDERED: DECADRON IV STA (15:19)
[2017-04-19] MEDS ORDERED: DECADRON ONE (15:22)
--- NOTE | 2017-04-19 17:11 | Cat Scan Report ---
FINAL REPORT EXAM: CT ABDOMEN PELVIS WO CON HISTORY: abdominal pain with N/V. TECHNIQUE: CT abdomen and pelvis without contrast PRIORS: None. FINDINGS: No acute abnormality identified in the lung bases. No focal abnormality identified within the liver parenchyma. The spleen demonstrates normal size and attenuation. No pancreatic abnormalities seen. Kidneys demonstrate no evidence of hydronephrosis or nephrolithiasis. No ureteral calculus identified. The adrenal glands are unremarkable. Abdominal aorta is normal in caliber. No pathologically enlarged lymph nodes are identified. No signs of free fluid or free air No evidence of small bowel dilatation. The appendix is identified and is normal in size no adjacent inflammatory change seen. Urinary bladder is unremarkable. IMPRESSION: Negative. No acute abnormalities seen
== END 2017-04-19 18:08 | disposition home or self-care (01) ==
LOC: ED 12:38
DX: R10.84 Generalized abdominal pain (principal); G43.909 Migraine, unspecified, not intractable, without status migrainosus; R11.2 Nausea with vomiting, unspecified; M19.90 Unspecified osteoarthritis, unspecified site; F32.9 Major depressive disorder, single episode, unspecified; J45.909 Unspecified asthma, uncomplicated; Z88.6 Allergy status to analgesic agent; Z88.0 Allergy status to penicillin; Z88.1 Allergy status to other antibiotic agents; Z88.2 Allergy status to sulfonamides
CPT/HCPCS: 36415; 74176; 80053; 81001; 81025; 83690; 85025; 96361; 96374; 96375; 99284; J1100; J1200; J2270; J2405; J2765; J7030

== ENCOUNTER 2017-06-11 15:19 | Emergency (ER) | payer SELFPAY ==
[2017-06-11 15:49] LABS: Basophils % (Auto) 0.9 % (0.0-1.8); Eosinophils # (Auto) 0.3 K/mm3 (0.0-0.4); Eosinophils % (Auto) 5.1 % (0.0-4.3); Hematocrit 37.6 % (30.3-42.9); Hemoglobin 12.3 gm/dl (10.1-14.3); Lymphocytes # (Auto) 2.6 K/mm3 (1.2-5.4); Lymphocytes % (Auto) 45.2 % (13.4-35.0); Mean Corpuscular HGB Conc 33 % (30-34); Mean Corpuscular Hemoglobin 28 pg (28-32); Mean Corpuscular Volume 86 fl (79-97); Monocytes # (Auto) 0.4 K/mm3 (0.0-0.8); Monocytes % (Auto) 6.2 % (0.0-7.3); Platelet Count 337 K/mm3 (140-440); Red Blood Count 4.35 M/mm3 (3.65-5.03); Red Cell Distribution Width 13.3 % (13.2-15.2)
[2017-06-11 16:08] LABS: BUN/Creatinine Ratio 10; Blood Urea Nitrogen 8 mg/dL (7-17); Calcium 8.9 mg/dL (8.4-10.2); Hemolysis Index 24
--- NOTE | 2017-06-11 16:29 | Emergency Department Report ---
ED Chest Pain HPI - General Chief Complaint: Chest Pain Stated Complaint: GLORIA/CHEST PAIN Time Seen by Provider: 06/11/17 16:07 Source: patient Mode of arrival: Wheelchair Limitations: No Limitations - History of Present Illness Initial Comments: 46-year-old female morbidly obese history of DVT PE history of reactive airway disease says she stopped eliquis as she ran out of unknown how long ago" "very expensive" here with chest pain and shortness of breath, here w/ increased wob w / sob, int cp to back, no abd c/o, no black or bloody stool, no n/v/d, is in touch w/ pcp re: starting coumadin or drug co. discoutn for chronic anticoag and she is planning to see pcp re:this. -: Gradual Onset: during exertion Pain Location: substernal, left chest Pain Radiation: back Quality: tightness, squeezing Consistency: now resolved Improves With: nothing - Related Data Home Medications Medication Instructions Recorded Confirmed Last Taken Levothyroxine Sodium [Synthroid] 175 mcg PO DAILY 03/22/17 06/11/17 06/10/17 lamoTRIgine [LaMICtal] 175 mg PO QHS 03/22/17 06/11/17 06/10/17 diphenhydrAMINE [Benadryl CAP] 25 mg PO DAILY PRN 06/11/17 06/11/17 06/11/17 traMADol [Ultram 50 MG tab] 100 mg PO BID PRN 06/11/17 06/11/17 06/10/17 traZODone [Desyrel] 25 mg PO QHS PRN 06/11/17 06/11/17 06/10/17 Previous Rx's Medication Instructions Recorded Last Taken Type Apixaban [Eliquis] 5 mg PO BID 30 Days tablet 03/24/17 06/10/17 Rx predniSONE [Deltasone] 50 mg PO QDAY #5 tab 06/11/17 Unknown Rx Allergies Allergy/AdvReac Type Severity Reaction Status Date / Time aspirin Allergy Anaphylaxis Verified 06/11/17 15:28 ibuprofen Allergy Anaphylaxis Verified 06/11/17 15:28 Penicillins Allergy Anaphylaxis Verified 06/11/17 15:28 shellfish derived Allergy Anaphylaxis Verified 06/11/17 15:28 Sulfa (Sulfonamide Allergy Unknown Verified 02/16/18 15:28 Antibiotics) tuberculin,PPD,multi-puncture Allergy Anaphylaxis Verified 06/11/17 15:28 Heart Score - HEART Score History: Slightly suspicious EKG: Non-specific Age: 45-65 Risk factors: 1-2 risk factors Troponin: < normal limit HEART Score: 3 ED Review of Systems ROS: Stated complaint: GLORIA/CHEST PAIN Other details as noted in HPI Comment: All other systems reviewed and negative Constitutional: denies: diaphoresis, fever, malaise, weakness ENT: denies: ear pain, throat pain Respiratory: shortness of breath, wheezing. denies: stridor Cardiovascular: chest pain, dyspnea on exertion. denies: palpitations, orthopnea, edema, syncope Gastrointestinal: denies: nausea, vomiting, diarrhea, constipation, hematemesis , melena, hematochezia Musculoskeletal: denies: joint swelling, arthralgia Neurological: denies: headache, weakness, numbness, paresthesias, confusion, abnormal gait, vertigo Psychiatric: denies: anxiety, depression, auditory hallucinations, visual hallucinations, homicidal thoughts, suicidal thoughts ED Past Medical Hx - Past Medical History Hx Congestive Heart Failure: No Hx Diabetes: No Hx Pulmonary Embolism: Yes (03/12) Hx Arthritis: Yes Hx Headaches / Migraines: Yes Hx Psychiatric Treatment: Yes (depression/anxiety) Hx Asthma: Yes Hx COPD: No Additional medical history: osteoarthritis both knees, bone spurs, uses a cane, allergy induced asthma, hypothyroidism, migraines, sciatic nerve, herniated disc in spine - Surgical History Additional Surgical History: plant right foot,, tubaligation - Social History Smoking Status: Never Smoker Substance Use Type: None - Medications Home Medications: Home Medications Medication Instructions Recorded Confirmed Last Taken Type Levothyroxine Sodium [Synthroid] 175 mcg PO DAILY 03/22/17 06/11/17 06/10/17 History lamoTRIgine [LaMICtal] 175 mg PO QHS 03/22/17 06/11/17 06/10/17 History Apixaban [Eliquis] 5 mg PO BID 30 Days tablet 03/24/17 06/11/17 06/10/17 Rx diphenhydrAMINE [Benadryl CAP] 25 mg PO DAILY PRN 06/11/17 06/11/17 06/11/17 History predniSONE [Deltasone] 50 mg PO QDAY #5 tab 06/11/17 Unknown Rx traMADol [Ultram 50 MG tab] 100 mg PO BID PRN 06/11/17 06/11/17 06/10/17 History traZODone [Desyrel] 25 mg PO QHS PRN 06/11/17 06/11/17 06/10/17 History ED Physical Exam - General Limitations: No Limitations General appearance: alert, in no apparent distress, obese - Head Head exam: Present: atraumatic, normocephalic - Eye Eye exam: Present: PERRL, EOMI - ENT ENT exam: Present: normal exam, normal orophraynx - Neck Neck exam: Present: normal inspection. Absent: tenderness, meningismus - Respiratory Respiratory exam: Present: rhonchi, prolonged expiratory. Absent: respiratory distress, stridor, accessory muscle use - Cardiovascular Cardiovascular Exam: Present: regular rate, normal heart sounds. Absent: irregular rhythm, rubs, gallop - GI/Abdominal GI/Abdominal exam: Present: soft. Absent: distended, tenderness, guarding, rebound, rigid, organomegaly, mass, bruit, pulsatile mass - Extremities Exam Extremities exam: Present: normal inspection, normal capillary refill, pedal edema. Absent: tenderness, joint swelling, calf tenderness - Back Exam Back exam: Present: normal inspection. Absent: tenderness, CVA tenderness (R), CVA tenderness (L), muscle spasm, paraspinal tenderness, vertebral tenderness - Neurological Exam Neurological exam: Present: alert, oriented X3, CN II-XII intact. Absent: motor sensory deficit - Psychiatric Psychiatric exam: Present: anxious. Absent: depressed, agitated, homicidal ideation, suicidal ideation - Skin Skin exam: Absent: diaphoretic, erythema, urticaria, vesicles, petechiae, pallor , ecchymosis ED Course Vital Signs 06/11/17 06/11/17 06/11/17 15:28 15:55 16:01 Temperature 97.4 F L Pulse Rate 94 H 93 H 85 Respiratory 18 14 14 Rate Blood Pressure 145/83 O2 Sat by Pulse 98 88 100 Oximetry 06/11/17 06/11/17 06/11/17 16:11 16:21 16:30 Temperature Pulse Rate 87 84 90 Respiratory 12 20 21 Rate Blood Pressure 129/78 128/73 124/61 O2 Sat by Pulse 100 100 100 Oximetry 06/11/17 06/11/17 06/11/17 16:41 16:51 16:56 Temperature Pulse Rate 90 92 H Respiratory 19 23 16 Rate Blood Pressure 124/61 122/57 O2 Sat by Pulse 100 98 99 Oximetry 06/11/17 06/11/17 06/11/17 16:59 17:00 17:11 Temperature 98.2 F Pulse Rate 89 87 Respiratory 24 20 Rate Blood Pressure 127/61 127/61 O2 Sat by Pulse 96 96 Oximetry 06/11/17 06/11/17 06/11/17 17:21 17:30 17:41 Temperature Pulse Rate 88 87 91 H Respiratory 12 27 H 15 Rate Blood Pressure 124/66 111/54 111/54 O2 Sat by Pulse 98 98 99 Oximetry 06/11/17 06/11/17 06/11/17 17:50 18:00 18:11 Temperature Pulse Rate 92 H 87 Respiratory 11 L 26 H Rate Blood Pressure 119/62 119/62 O2 Sat by Pulse 99 99 98 Oximetry 06/11/17 06/11/17 06/11/17 18:21 18:30 18:41 Temperature Pulse Rate 89 87 94 H Respiratory 27 H 26 H 21 Rate Blood Pressure 119/62 125/32 125/32 O2 Sat by Pulse 99 100 99 Oximetry 06/11/17 06/11/17 06/11/17 18:51 19:00 19:11 Temperature Pulse Rate 83 86 81 Respiratory 20 21 21 Rate Blood Pressure 125/32 130/71 130/71 O2 Sat by Pulse 99 98 Oximetry 06/11/17 06/11/17 06/11/17 19:21 19:30 19:41 Temperature Pulse Rate 84 79 78 Respiratory 20 18 18 Rate Blood Pressure 115/63 110/62 110/62 O2 Sat by Pulse 98 98 100 Oximetry 06/11/17 06/11/17 06/11/17 19:51 20:00 20:11 Temperature Pulse Rate 85 79 80 Respiratory 13 21 17 Rate Blood Pressure 121/71 111/78 111/78 O2 Sat by Pulse 100 100 100 Oximetry 06/11/17 06/11/17 06/11/17 20:21 21:19 21:21 Temperature Pulse Rate 78 87 89 Respiratory 11 L 12 16 Rate Blood Pressure 121/62 131/54 131/54 O2 Sat by Pulse 100 100 100 Oximetry 06/11/17 21:31 Temperature Pulse Rate 91 H Respiratory 17 Rate Blood Pressure 131/54 O2 Sat by Pulse 99 Oximetry ED Medical Decision Making - Lab Data Result diagrams: 06/11/17 15:36 06/11/17 15:36 - EKG Data -: EKG Interpreted by Me EKG shows normal: sinus rhythm Rate: normal - EKG Data When compared to previous EKG there are: no significant change, other (all right bundle branch block) Interpretation: nonspecific ST-T wave lisandro - Radiology Data Radiology results: report reviewed - Medical Decision Making 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 She did consent to a external jugular IV I did place this 18-gauge without complications after sterile skin prep. She then told the nurse after an hour that she wanted it out the nurse did find a adequate peripheral access. Patient underwent CT scanning this was read as no acute process no PE no other acute disease was identified. Symptoms were suggestive of chest pain and shortness of breath. This likely is related to her underlying chronic lung disease she will be placed back on her inhaler as well as a steroid. I did discuss with her that she will need to be on her blood thinners that's what was recommended if she has a history of DVT PE. She states that she is in the process of getting this settle with her doctor considering restarting Coumadin given the expense eliquis. Her d-dimer slightly elevated her troponin is negative 3 EKG was unchanged she was stable for outpatient follow-up given stable vital signs no emergent process that would require further evaluation or admission is identified at this time she has no acute abdomen no evidence of ACS no evidence of acute or active PE or DVT she is therefore, restart her eliquia and/or consult her regular doctor for Coumadin therapy. She'll be placed back on her inhaler she'll be placed on a steroid. She is refusing antibiotics is no evidence of pneumonia at this time she does have acute exacerbation of underlying chronic lung disease., stable for outpt f/u Critical care attestation.: If time is entered above; I have spent that time in minutes in the direct care of this critically ill patient, excluding procedure time. ED Disposition Clinical Impression: Atypical chest pain, History of reactive airway disease Disposition: TO HOME OR SELFCARE Is pt being admited?: No Condition: Stable Instructions: Chest Pain (ED), Asthma (ED), Reactive Airways Disease (ED) Additional Instructions: Return immediately or call 911 if new alarming symptoms, he will need to restart your blood thinners and see her doctor DWAIN regarding this. Otherwise see her doctor within 1-2 days Prescriptions: predniSONE [Deltasone] 50 mg PO QDAY #5 tab Time of Disposition: 23:22
[2017-06-11 16:55] LABS: INR 0.93 (0.87-1.13)
[2017-06-11 16:56] LABS: Partial Thromboplastin Time 33.2 Sec. (24.2-36.6)
[2017-06-11 20:18] LABS: HCG Qualitative,Urine Negative (Negative)
[2017-06-11 20:20] LABS: Bacteria,Urine 1+ /HPF (Negative); Bilirubin,Urine NEG (Negative); Blood,Urine LG (Negative); Color,Urine Yellow (Yellow); Mucus,Urine FEW /HPF; Nitrite,Urine NEG (Negative); Urobilinogen,Urine < 2.0 mg/dL (<2.0)
[2017-06-11 20:29] LABS: Amphetamine Screen,Urine PRESUMPTIVE NEGATIVE; Benzodiazepines Screen,Urine PRESUMPTIVE NEGATIVE; Cannabinoid Screen,Urine PRESUMPTIVE NEGATIVE; Cocaine Screen,Urine PRESUMPTIVE NEGATIVE; Methadone Screen,Urine PRESUMPTIVE NEGATIVE; Opiate Screen,Urine PRESUMPTIVE NEGATIVE
[2017-06-11] MEDS ORDERED: PERCOCET 5/325 PO ONE (20:50)
--- NOTE | 2017-06-11 21:47 | Cat Scan Report ---
FINAL REPORT EXAM: CT ANGIO CHEST HISTORY: poss pe TECHNIQUE: CT imaging obtained through the chest in pulmonary angiographic phase following intravenous administration of contrast. Transaxial, Coronal and sagittal reformats with maximal intensity projections are provided. PRIORS: CT abdomen and pelvis 04/19/2017 FINDINGS: Streak artifact and excessive mottling are secondary to soft tissues extending well beyond the field of view. Normal caliber main pulmonary artery. No central or large segmental pulmonary embolism. Contrast opacification of the pulmonary arterial tree is insufficient for more detailed evaluation of pulmonary embolism. No pericardial effusion. Thoracic aorta is normal in course and caliber. No periaortic fluid or stranding. No pneumothorax, effusion or focal airspace disease. Linear bibasilar atelectasis/scarring. The central airways are patent. No bronchiectasis. Imaged portion of the upper abdomen is unremarkable. The superficial soft tissues are unremarkable. No acute bony abnormality or worrisome osseous lesions identified. IMPRESSION: No central or large segmental pulmonary embolism or other acute finding.
[2017-06-11 23:34] VITALS: BP 107/51
== END 2017-06-12 00:17 | disposition home or self-care (01) ==
LOC: ED 15:19
DX: J45.909 Unspecified asthma, uncomplicated (principal); F41.9 Anxiety disorder, unspecified; F32.9 Major depressive disorder, single episode, unspecified; E03.9 Hypothyroidism, unspecified; G43.909 Migraine, unspecified, not intractable, without status migrainosus; M17.0 Bilateral primary osteoarthritis of knee; E66.01 Morbid (severe) obesity due to excess calories; Z68.43 Body mass index [BMI] 50.0-59.9, adult; Z98.51 Tubal ligation status; Z86.711 Personal history of pulmonary embolism; Z88.6 Allergy status to analgesic agent; Z88.0 Allergy status to penicillin; Z91.013 Allergy to seafood; Z79.899 Other long term (current) drug therapy
CPT/HCPCS: 36415; 71275; 80048; 80307; 81001; 81025; 84484; 85025; 85379; 85610; 85730; 93005; 93010; 99284; Q9967

== ENCOUNTER 2017-06-16 21:24 | Emergency (ER) | payer OTHER ==
[2017-06-16 21:56] VITALS: BP 159/63
[2017-06-16] MEDS ORDERED: TYLENOL PO ONE (22:34)
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
== END 2017-06-17 00:10 | disposition home or self-care (01) ==
LOC: ED 21:24
DX: S86.912A Strain of unspecified muscle(s) and tendon(s) at lower leg level, left leg, initial encounter (principal); Z79.899 Other long term (current) drug therapy; Z88.6 Allergy status to analgesic agent; Z88.0 Allergy status to penicillin; Z88.2 Allergy status to sulfonamides; Z91.013 Allergy to seafood; G43.909 Migraine, unspecified, not intractable, without status migrainosus; Z86.711 Personal history of pulmonary embolism; J45.909 Unspecified asthma, uncomplicated; F32.9 Major depressive disorder, single episode, unspecified; F41.9 Anxiety disorder, unspecified; Z98.51 Tubal ligation status; M19.90 Unspecified osteoarthritis, unspecified site; V89.2XXA Person injured in unspecified motor-vehicle accident, traffic, initial encounter; Y93.89 Activity, other specified; Y92.89 Other specified places as the place of occurrence of the external cause; Y99.8 Other external cause status
CPT/HCPCS: 99283

== ENCOUNTER 2017-08-15 07:32 | Emergency (ER) | payer SELFPAY ==
[2017-08-15 08:05] VITALS: BP 143/89
[2017-08-15] MEDS ORDERED: TORADOL IM ONE (08:53)
[2017-08-15] MEDS ORDERED: BENADRYL IV ONE (08:53)
[2017-08-15] MEDS ORDERED: ZOFRAN IM ONE (08:53)
--- NOTE | 2017-08-15 08:57 | Emergency Department Report ---
ED Headache HPI - General Chief Complaint: Headache Stated Complaint: NAUSEA/VOMITING Time Seen by Provider: 08/15/17 08:52 - History of Present Illness Initial Comments: 46-year-old -[place] female comes in stating have a migraine and having nausea and vomiting with dry heaves. Patient reports that this started yesterday. Patient reports this is similar to her migraines in the past. Patient denies any other issues at this time. Patient does admit to photophobia and nausea vomiting or dry heaving. Denies any chest pain shortness of breathing. Timing/Duration: 24 hours Quality: moderate Recent Head Trauma: no recent headache/trauma Modifying Factors: improves with: exposure to light Associated Symptoms: nausea/vomiting. denies: facial pain, fever/chills Allergies/Adverse Reactions: Allergies aspirin Allergy (Verified 06/11/17 15:28) Anaphylaxis ibuprofen Allergy (Verified 06/11/17 15:28) Anaphylaxis Penicillins Allergy (Verified 06/11/17 15:28) Anaphylaxis shellfish derived Allergy (Verified 06/11/17 15:28) Anaphylaxis Sulfa (Sulfonamide Antibiotics) Allergy (Verified 06/11/17 15:28) Unknown tuberculin,PPD,multi-puncture Allergy (Verified 06/11/17 15:28) Anaphylaxis Home Medications: Ambulatory Orders Levothyroxine Sodium [Synthroid] 175 mcg PO DAILY 03/22/17 lamoTRIgine [LaMICtal] 175 mg PO QHS 03/22/17 Apixaban [Eliquis] 5 mg PO BID 30 Days tablet 03/24/17 diphenhydrAMINE [Benadryl CAP] 25 mg PO DAILY PRN 06/11/17 predniSONE [Deltasone] 50 mg PO QDAY #5 tab 06/11/17 traZODone [Desyrel] 25 mg PO QHS PRN 06/11/17 Acetaminophen [8Hr Arthritis Pain] 650 mg PO Q8H PRN #30 tablet.er 06/16/17 Cyclobenzaprine [Flexeril] 10 mg PO QHS PRN #7 tablet 06/16/17 Ondansetron [Zofran Odt] 4 mg PO Q8HR PRN #9 tab.rapdis 08/15/17 traMADol [Ultram 50 MG tab] 100 mg PO BID PRN #10 tablet 08/15/17 ED Review of Systems ROS: Stated complaint: NAUSEA/VOMITING Other details as noted in HPI Constitutional: denies: chills, fever Eyes: denies: eye pain, eye discharge, vision change ENT: denies: ear pain, throat pain Respiratory: denies: cough, shortness of breath, wheezing Cardiovascular: denies: chest pain, palpitations Endocrine: no symptoms reported Gastrointestinal: nausea, vomiting, other (dry heaves) Genitourinary: denies: urgency, dysuria, discharge Musculoskeletal: denies: back pain, joint swelling, arthralgia Skin: denies: rash, lesions Neurological: headache, other (photophobia) Psychiatric: denies: anxiety, depression Hematological/Lymphatic: denies: easy bleeding, easy bruising ED Past Medical Hx - Past Medical History Hx Congestive Heart Failure: No Hx Diabetes: No Hx Pulmonary Embolism: Yes (03/12) Hx Arthritis: Yes Hx Headaches / Migraines: Yes Hx Psychiatric Treatment: Yes (depression/anxiety) Hx Asthma: Yes Hx COPD: No Additional medical history: osteoarthritis both knees, bone spurs, uses a cane, allergy induced asthma, hypothyroidism, migraines, sciatic nerve, herniated disc in spine - Surgical History Additional Surgical History: plant right foot,, tubaligation - Social History Smoking Status: Never Smoker - Medications Home Medications: Home Medications Medication Instructions Recorded Confirmed Last Taken Type Levothyroxine Sodium [Synthroid] 175 mcg PO DAILY 03/22/17 06/11/17 06/10/17 History lamoTRIgine [LaMICtal] 175 mg PO QHS 03/22/17 06/11/17 06/10/17 History Apixaban [Eliquis] 5 mg PO BID 30 Days tablet 03/24/17 06/11/17 06/10/17 Rx diphenhydrAMINE [Benadryl CAP] 25 mg PO DAILY PRN 06/11/17 06/11/17 06/11/17 History predniSONE [Deltasone] 50 mg PO QDAY #5 tab 06/11/17 Unknown Rx traZODone [Desyrel] 25 mg PO QHS PRN 06/11/17 06/11/17 06/10/17 History Acetaminophen [8Hr Arthritis Pain] 650 mg PO Q8H PRN #30 tablet.er 06/16/17 Unknown Rx Cyclobenzaprine [Flexeril] 10 mg PO QHS PRN #7 tablet 06/16/17 Unknown Rx Ondansetron [Zofran Odt] 4 mg PO Q8HR PRN #9 tab.rapdis 08/15/17 Unknown Rx traMADol [Ultram 50 MG tab] 100 mg PO BID PRN #10 tablet 08/15/17 Unknown Rx ED Physical Exam - General Limitations: No Limitations General appearance: alert, in no apparent distress, other (actively dry heaving) - ENT ENT exam: Present: mucous membranes moist - Neck Neck exam: Present: normal inspection ED Course Vital Signs 08/15/17 08:02 Temperature 97.8 F Pulse Rate 94 H Respiratory 20 Rate Blood Pressure 143/89 O2 Sat by Pulse 99 Oximetry Critical care attestation.: If time is entered above; I have spent that time in minutes in the direct care of this critically ill patient, excluding procedure time. ED Disposition Clinical Impression: Migraine Qualifiers: Migraine type: unspecified Status migrainosus presence: without status migrainosus Intractability: intractable Qualified Code(s): G43.919 - Migraine, unspecified, intractable, without status migrainosus Disposition: DC-01 TO HOME OR SELFCARE Is pt being admited?: No Does the pt Need Aspirin: No Condition: Stable Instructions: Migraine Headache (ED) Additional Instructions: Please take pain medication as prescribed. Please take antinausea medication as prescribed. If symptoms persist or gets worse please follow-up with her primary care provider. Prescriptions: Ondansetron [Zofran Odt] 4 mg PO Q8HR PRN #9 tab.rapdis PRN Reason: nausea traMADol [Ultram 50 MG tab] 100 mg PO BID PRN #10 tablet PRN Reason: Pain Referrals: PRIMARY CARE,MD [Primary Care Provider] - 3-5 Days Forms: Work/School Release Form(ED)
== END 2017-08-15 11:12 | disposition home or self-care (01) ==
LOC: ED 07:32
DX: G43.909 Migraine, unspecified, not intractable, without status migrainosus (principal); M19.90 Unspecified osteoarthritis, unspecified site; F32.9 Major depressive disorder, single episode, unspecified; J45.909 Unspecified asthma, uncomplicated; Z98.51 Tubal ligation status; Z88.6 Allergy status to analgesic agent; Z88.0 Allergy status to penicillin; Z91.013 Allergy to seafood
CPT/HCPCS: 96372; 96374; 99282; J1200; J1885; J2405